=== PATIENT | male | born 1945 | race Caucasian/White ===

== ENCOUNTER 2023-03-18 07:20 | Outpatient (REF) | payer MEDICARE, SELFPAY ==
[2023-03-18] VITALS (14 sets, daily range): BP systolic 74–143; BP diastolic 55–66
[2023-03-18 07:53] LABS: % Basophils 0.6 % (0-2); % Eosinophils 5.2 % (0-6); % Immature Granulocytes 0.7 % (0-0.5); % Lymphocytes 25.9 % (20.5-51.1); % Monocytes 12.8 % (1.7-9.3); % Neutrophils 54.8 % (42.2-75.2); Absolute Eosinophils 0.4 10^3/uL (0-0.7); Absolute Immature Granulocytes 0.1 10^3/uL (0-0.05); Absolute Lymphocytes 1.8 10^3/uL (1.2-3.4); Absolute Monocytes 0.9 10^3/uL (0.1-0.6); Absolute Neutrophils 3.8 10^3/uL (1.4-6.5); Hematocrit 30.5 % (39.0-52.0); Hemoglobin 10.4 g/dL (13.0-18.0); Mean Corp Hgb Conc. 34.1 g/dL (33.0-37.0); Mean Corpuscular Hgb 33.9 pg (27.0-31.0); Mean Corpuscular Volume 99.3 fL (80.0-94.0); Mean Platelet Volume 10.2 fL (7.4-10.4); Nucleated Red Blood Cells % 0 % (-); Platelet Count 222 10^3/uL (130-400); Red Blood Cell Count 3.07 10^6/uL (4.70-6.10); Red Cell Dist. Width 13.9 % (11.5-14.5); White Blood Cell Count 6.9 10^3/uL (4.8-10.8)
[2023-03-18 07:59] LABS: INR 0.93; PT 12.7 Sec (11.4-14.6)
[2023-03-18 08:14] LABS: Blood Urea Nitrogen 41 mg/dl (9-20); Calcium 9.5 mg/dl (8.4-10.2); Carbon Dioxide 21 mmol/L (22-30); Chloride 110 mmol/L (98-107); Estimated Creatinine Clearance 22 ml/min; Glucose 101 mg/dl (70-99); Potassium 4.8 mmol/L (3.5-5.1); Sodium 138 mmol/L (135-145); eGFR 22.53
[2023-03-18 13:44] LABS: Hematocrit 28.4 % (39.0-52.0); Hemoglobin 9.9 g/dL (13.0-18.0)
== END 2023-03-18 15:27 | disposition home or self-care (01) ==
LOC: RADI 07:20
PROVIDERS: Physician Assistant; ATTENDING PHYSICIAN Internal Medicine; FAMILY PHYSICIAN Registered Nurse
DX: I12.9 Hypertensive chronic kidney disease with stage 1 through stage 4 chronic kidney disease, or unspecified chronic kidney disease (principal); N18.30 Chronic kidney disease, stage 3 unspecified
CPT/HCPCS: 36415; 50200; 76942; 80048; 85014; 85018; 85025; 85610; 99152; 99153

== ENCOUNTER → 2023-07-15 12:20 | Outpatient (REF) | payer MEDICARE, SELFPAY | LOC: RAD 12:20 | PROVIDERS: ATTENDING PHYSICIAN Student in an Organized Health Care Education/Training Program | DX: R42 Dizziness and giddiness (principal) | CPT/HCPCS: 70450 ==

== ENCOUNTER → 2023-08-04 08:22 | Outpatient (REF) | payer MEDICARE, SELFPAY | LOC: RAD 08:22 | PROVIDERS: ATTENDING PHYSICIAN Student in an Organized Health Care Education/Training Program | DX: R42 Dizziness and giddiness (principal); R25.2 Cramp and spasm | CPT/HCPCS: 93880; 93922; 93925 ==

== ENCOUNTER 2023-10-20 08:20 | Outpatient (RCR) | payer MEDICARE, SELFPAY ==
[2023-10-20 08:30] VITALS: BP 146/63
[2023-10-20] MEDS: SODIUM BICARBONATE 1150 MEQ IV (08:46)
== END 2023-10-21 08:22 | disposition home or self-care (01) ==
LOC: OID 08:20
PROVIDERS: ATTENDING PHYSICIAN Surgery Vascular Surgery; FAMILY PHYSICIAN Student in an Organized Health Care Education/Training Program
DX: I65.23 Occlusion and stenosis of bilateral carotid arteries (principal); Z92.89 Personal history of other medical treatment
CPT/HCPCS: 96365; 96366

== ENCOUNTER → 2023-10-20 08:35 | Outpatient (REF) | payer MEDICARE, SELFPAY | LOC: RAD 08:35 | PROVIDERS: ATTENDING PHYSICIAN Surgery Vascular Surgery; FAMILY PHYSICIAN Student in an Organized Health Care Education/Training Program | DX: I65.23 Occlusion and stenosis of bilateral carotid arteries (principal) | CPT/HCPCS: 70496; 70498; Q9967 ==

== ENCOUNTER → 2023-11-08 07:26 | Outpatient (REF) | payer MEDICARE, SELFPAY ==
[2023-11-08] MEDS: LEXISCAN 0.4 MG IV (09:25)
[2023-11-08] MEDS: FLUSH (NSS) 1 FLUSH IV (09:25)
== END ==
LOC: RCS 07:26
PROVIDERS: ATTENDING PHYSICIAN Nuclear Medicine Nuclear Cardiology; FAMILY PHYSICIAN Student in an Organized Health Care Education/Training Program
DX: Z01.818 Encounter for other preprocedural examination (principal); R07.9 Chest pain, unspecified; I10 Essential (primary) hypertension
CPT/HCPCS: 78452; 93017; A9500; J2785

== ENCOUNTER → 2023-11-11 08:21 | Outpatient (REF) | payer MEDICARE, SELFPAY | LOC: RCS 08:21 | PROVIDERS: ATTENDING PHYSICIAN Nuclear Medicine Nuclear Cardiology; FAMILY PHYSICIAN Student in an Organized Health Care Education/Training Program | DX: Z01.818 Encounter for other preprocedural examination (principal); R07.9 Chest pain, unspecified; I10 Essential (primary) hypertension | CPT/HCPCS: 93306 ==

== ENCOUNTER 2023-11-22 08:34 | Inpatient (IN) | payer MEDICARE, SELFPAY ==
[2023-11-16 09:35] VITALS: BMI 25.6
[2023-11-16 09:59] LABS: % Basophils 0.8 % (0-2); % Eosinophils 5.1 % (0-6); % Immature Granulocytes 1.3 % (0-0.5); % Lymphocytes 25.1 % (20.5-51.1); % Monocytes 16.5 % (1.7-9.3); % Neutrophils 51.2 % (42.2-75.2); Absolute Basophils 0.1 10^3/uL (0-0.2); Absolute Eosinophils 0.3 10^3/uL (0-0.7); Absolute Immature Granulocytes 0.1 10^3/uL (0-0.05); Absolute Lymphocytes 1.6 10^3/uL (1.2-3.4); Absolute Neutrophils 3.2 10^3/uL (1.4-6.5); Hematocrit 31.2 % (39.0-52.0); Hemoglobin 10.7 g/dL (13.0-18.0); Mean Corp Hgb Conc. 34.3 g/dL (33.0-37.0); Mean Corpuscular Hgb 34.2 pg (27.0-31.0); Mean Corpuscular Volume 99.7 fL (80.0-94.0); Mean Platelet Volume 10.4 fL (7.4-10.4); Nucleated Red Blood Cells % 0 % (-); Platelet Count 217 10^3/uL (130-400); Red Blood Cell Count 3.13 10^6/uL (4.70-6.10); Red Cell Dist. Width 13.5 % (11.5-14.5); White Blood Cell Count 6.3 10^3/uL (4.8-10.8)
[2023-11-16 10:13] LABS: APTT 25.9 Sec (23.4-35.0); INR 0.95; PT 12.5 Sec (11.4-14.6)
[2023-11-16 10:31] LABS: Blood Urea Nitrogen 50 mg/dl (9-20); Calcium 10.4 mg/dl (8.4-10.2); Carbon Dioxide 19 mmol/L (22-30); Chloride 107 mmol/L (98-107); Estimated Creatinine Clearance 19 ml/min; Glucose 106 mg/dl (70-99); Potassium 5.3 mmol/L (3.5-5.1); Sodium 142 mmol/L (135-145); eGFR 21.47
[2023-11-22] VITALS (14 sets, daily range): BP systolic 76–179; BP diastolic 47–81; BMI 25.6
[2023-11-22] MEDS: PERIDEX 0.12% ORAL RINSE 15 ML PO (08:53)
[2023-11-22] MEDS: BACTROBAN NASAL 1 GRAM NASAL (08:53)
[2023-11-22] MEDS: NSS 500 IV (08:54)
--- NOTE | 2023-11-22 09:26 | W.SUR.PREOP ---
Pre-Operative Surgical Note
-
I have examined this patient prior to the performance of the scheduled procedure.
The patient's condition is unchanged from the time of the current History and
Physical and the patient is able to undergo the scheduled procedure.
--- NOTE | 2023-11-22 12:10 | OR.RPT ---
Operative Report
Operative Report
PROCEDURE DATE: 11/22/2023
Preoperative diagnosis: Critical asymptomatic left carotid artery stenosis.
Postoperative diagnosis: Same
Procedure: Left carotid endarterectomy with bovine pericardial patch angioplasty and intraoperative EEG and SSEP monitoring.
Surgeon: Talha
Wardrobe Assistant: ALEXANDER Sharma, required for all aspects of procedure including assistance with traction/countertraction, following of suture line, assistance with closure.
Complications: None
Anesthesia: General
Indications for procedure:
Severe left carotid artery stenosis. Asymptomatic. Risk/benefits/alternatives all fully discussed. Complicating factor was patient's fused cervical spine and therefore difficulty with extension and rotation of the neck. However I felt it was
surgically approachable, and I felt TCAR would be more challenging actually. In addition I favored carotid endarterectomy over transfemoral stenting. Risk/benefits/alternatives also discussed. Patient understood all wish to proceed.
Description of procedure:
Patient was identified brought to the operating room placed on the table in supine position. After the induction of anesthesia we attempted to position in the standard fashion, however he had really no ability to extend or rotate the neck.
Therefore positioning was slightly challenging but I felt the procedure was still feasible. After the adequate administration of anesthesia and perioperative antibiotics he was prepped and draped in the standard surgical fashion. A standard
preoperative timeout was undertaken and everybody was in agreement the plan. A standard longitudinal incision was made in the left neck that was carried through the skin subcutaneous tissue. Using the electrocautery dissection was carried through
the platysma muscle layer and then alongside the anterior medial border of the sternocleidomastoid muscle. Then using a combination of sharp dissection with the Metzenbaum scissors and electrocautery I dissected along the anterior medial border of
the internal jugular vein. The common facial vein branch was ligated between silk ties and then divided. I then deepened my retraction. The common carotid artery was identified and carefully dissected away from the surrounding structures take
great care to avoid any injury to the structures. Again due to his diffuse cervical spine and limited positioning, the common carotid artery was somewhat deep and inferior in the field. A vessel loop was passed around it which was double looped,
but not yet tightened. Note the vagus nerve was protected from harm's way. I then continued my dissection up the common carotid artery to the bulb staying only on the anterior surface of the carotid artery. Then I carried the dissection up to the
internal carotid artery and then to the distal internal carotid artery. I identified where it was soft and carefully circumferentially dissected the internal carotid artery with minimal mobilization and passed a vessel loop around it. Note the
hypoglossal nerve was preserved from harm's way. The patient was given an appropriate dose of heparin 7000 units. Next I dissected the anterior surface of the external carotid artery and superior thyroid branches. These were then carefully
circumferentially dissected with minimal mobilization and vessel loops passed around these which were double looped but not yet tightened. After 3 minutes of heparin circulation time and confirmation of optimization of the blood pressure with my
anesthesiology colleagues, I clamped the distal internal carotid artery where it was soft. There was no immediate EEG or SSEP changes. After 1 minute of test clamp time there was no changes noted. Therefore at this point, the vessel loops on the
external carotid artery and superior thyroid branches were tightened and the common carotid artery was clamped where it was soft proximally. An arteriotomy was made on the common carotid artery with an 11 blade and extended using a Shea scissor.
I extended the arteriotomy onto the mid to distal internal carotid artery. There was bulky calcified plaque in the proximal internal carotid artery that was actually difficult to cut through with the Shea scissor, and created a severe stenosis. A
[place] was then used to endarterectomized the plaque. An endarterectomy plane was created, and the plaque was then endarterectomized. Distally I feathered the plaque out to a nice clean endpoint in the distal internal carotid artery. Next I
endarterectomized the intima back to normal intima in the common carotid artery, and the intima was cut flush there. I then grasped the plaque and everted plaque out of the origin of the external carotid artery. The plaque was then sent off for
specimen. The origin of the external carotid artery was carefully visualized and any fine debris were removed with fine forceps. Proximal and distal endpoints were then carefully inspected. Any fine debris was removed with fine forceps, and the
intima was noted to be nicely adherent proximally distally. Next any fine debris were removed throughout the endarterectomy bed with fine forceps. There was some coral reef like plaque remanence even after the endarterectomy that I had to
carefully remove. I then flushed heparinized saline several times. I was very satisfied. Then, I used a bovine pericardial patch to sew a patch angioplasty with a running 6-0 Prolene suture. Prior to completing and tying down my suture line, I
backbled sequentially each branch and reclamped each branch prior to unclamping the next branch. I then irrigated with heparinized saline. Then I completed and tied down my suture line. We then restored flow in the common carotid and external
carotid arteries. Finally, we released flow in the internal carotid artery. There was excellent pulsatile flow in all 3 vessels. There was an excellent Doppler signal in the internal carotid artery distal to the patch with a good normal low
resistance Doppler signal. There was a good Doppler signal in the external carotid artery as well. A few 6-0 Prolene [id number] sutures were placed along any bleeding points along the suture line. Protamine was given to reverse the heparin.
Hemostasis was completely achieved. We then irrigated and confirmed full hemostasis. We then closed in layers with 2-0 Vicryl layer to reapproximate the sternocleidomastoid muscle, followed by 3-0 Vicryl platysma muscle running layer, followed by
4-0 Monocryl subcuticular stitch. Dermabond was applied. The patient tolerated procedure well. He awoke moving all extremities to command with tongue in the midline.
[2023-11-22 12:45] LABS: Hematocrit 28.6 % (39.0-52.0); Hemoglobin 9.6 g/dL (13.0-18.0); Mean Corp Hgb Conc. 33.6 g/dL (33.0-37.0); Mean Corpuscular Hgb 32.7 pg (27.0-31.0); Mean Corpuscular Volume 97.3 fL (80.0-94.0); Mean Platelet Volume 9.8 fL (7.4-10.4); Platelet Count 188 10^3/uL (130-400); Red Blood Cell Count 2.94 10^6/uL (4.70-6.10); Red Cell Dist. Width 13.7 % (11.5-14.5); White Blood Cell Count 11.6 10^3/uL (4.8-10.8)
[2023-11-22 13:05] LABS: Blood Urea Nitrogen 47 mg/dl (9-20); Calcium 9.5 mg/dl (8.4-10.2); Carbon Dioxide 15 mmol/L (22-30); Chloride 109 mmol/L (98-107); Estimated Creatinine Clearance 20 ml/min; Glucose 135 mg/dl (70-99); Potassium 5.4 mmol/L (3.5-5.1); Sodium 141 mmol/L (135-145); eGFR 23.39
--- NOTE | 2023-11-22 13:45 | PTCARENOTE ---
Assumed care of patient. Rec'd pt from PACU. Pt rec'd A&Ox3...pleasant. C/o 06/01 back of neck/shoulder pain...will offer pain meds...see MAR. Bilateral hand tremor noted. PMH of ETOH...will monitor MSAS. Facial symmetry noted...able to smile
and stick out tongur with no issue. S1 S2 reg w/ NSR/1st degree AVB/RBBC on monitor. +PP. No edema. On R/A...sats 97%. Lungs clear except left base w/ crackles. Encourage to cough and deep breath. Dry NPC noted. Abdomen round..+BS. Voids
yellow in urinal. Skin WNL except left neck incision...well approximated and [employer] w/ glue. (R) radial misa...flushed and zeroed. 20P LFA capped. 18P LFA w/ IVF's infusing. VS documented. Call melvin within reach. Able to drink water and take po
meds w/o issue. Will continue to monitor closely.
[2023-11-22] MEDS: ROXICODONE 5 MG PO ×2 (14:05→22:01)
--- NOTE | 2023-11-22 14:05 | CON.INTV ---
Consultation
Consultation Request
Date/Time Consultation Requested: 11/22/23
Date/Time Consultation Performed: 11/22/23
Performing Provider: Matias
Reason for Consultation: Vasc Postop
Medical History
-
History of Present Illness:
Patient is a 78-year-old male with previous history of chronic alcohol abuse, back pain with ankylosing spondylitis, hypertension, hyperlipidemia, chronic kidney disease stage IV presenting for elective carotid vascular intervention. He has history
of left-sided carotid stenosis of greater than 80% with moderately to significant stenotic right side as well. Underwent intervention on 11/22/2023 and transferred postoperatively to ICU for further management.
Past Medical History
Past Medical History: Other (see list below)
Social History
Tobacco: Former Smoker
Alcohol: Daily
Drug: None
Family History
Family History: Reviewed & Not Pertinent
Allergies / Home Medications
Allergies
Allergy/AdvReac Type Severity Reaction Status Date / Time
No Known Allergies Allergy Verified 11/22/23 08:57
Home Medications
�Medication �Instructions �Recorded �Confirmed �Last Taken �Type
atorvastatin 20 mg tablet 20 mg PO DAILY 03/18/23 11/22/23 11/21/23 08:00 History
cyanocobalamin (vitamin B-12) 500 mcg PO DAILY 03/18/23 11/22/23 11/21/23 08:00 History
1,000 mcg tablet
losartan 25 mg tablet 50 mg PO BID 03/18/23 11/22/23 11/21/23 20:00 History
amlodipine 5 mg tablet 5 mg PO DAILY 10/20/23 11/22/23 11/21/23 08:00 History
acetaminophen 325 mg tablet 650 mg PO Q4H PRN pain 11/22/23 11/22/23 11/19/23 History
(Tylenol)
cholecalciferol (vitamin D3) 25 25 mcg PO DAILY 11/22/23 11/22/23 11/21/23 08:00 History
mcg (1,000 unit) capsule (Vitamin
D3)
Review of Systems
-
History Source: Patient
All other systems: Negative unless noted
Vitals / Labs / Diagnostic Testing
Vital Signs
Temp Pulse Resp BP Pulse Ox
98.4 F 86 15 131/59 95
11/22/23 13:30 11/22/23 13:30 11/22/23 13:30 11/22/23 13:15 11/22/23 13:30
Lab Data
11/22/23 12:37
11/22/23 12:37
Diagnostic Testing:
Physical Exam
-
HEENT: Normocephalic, Anicteric and Moist Mucous Membranes
Cardiovascular: S1/S2 and Regular Rhythm
Respiratory: Clear and Non-Labored Respirations
GI: Soft, Non Distended and Non Tender
Neurology: Awake, Alert, Oriented and No Motor Deficits
Skin: Warm, Dry and Good Color
General: Comfortable and Other (NAD)
Assessment
-
Patient is a 78-year-old male with previous history of chronic alcohol abuse, back pain with ankylosing spondylitis, hypertension, hyperlipidemia, chronic kidney disease stage IV presenting for elective carotid vascular intervention. He has history
of left-sided carotid stenosis of greater than 80% with moderately to significant stenotic right side as well. Underwent intervention on 11/22/2023 and transferred postoperatively to ICU for further management.
BL carotid disease s/p L CEA 11/22/23
Anemia, acute on chronic, likely postop
Hyperkalemia
Metabolic acidosis
DARON, creat 2.9 (BL 1.4-1.9)
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
History of EtOH abuse w/ acute WD and DTs 2021
Hypertension
Ambulatory dysfunction
History of cervical injury and fusion/repair 3 years ago
HLD
Former smoker
RBBB
Ankylosing spondylitis
Vit B12 def
CKD stage 4, GFR 15-29 ml/min
broken neck (1990) w/ cervical fx c5 s/p cervical surgery c7 fusion 2018
Cataract extraction(2006)
Tonsillectomy(1955)
Plan
Patient is s/p L CEA by vascular surgery service, POD #0
Continue observation following procedure
Follow neurovascular checks per protocol
ETOH history noted, h/o WD/DT noted in past
Monitor for symptoms
Follow BP monitoring and parameters as set by primary team
Cardiac history noted--HTN, RBBB
Monitor on telemetry
Pain control per protocol
RASS goal 0
No prior history of pulmonary disease, former smoker
CXR reviewed indicating no acute disease
No prior PFTs for review
Encouraged IS
Diet advancement per protocol
Aspiration precautions
GI prophylaxis if indicated for stress ulcer prevention in the critically ill
CKD history
DARON likely, follow BMP
Renal following as OP
Critical I/Os
Void trials
Replete electrolytes as needed
No signs/symptoms suspicious for infectious etiology at this time
Will observe off antibiotics for now
Follow temperatures/CBC
Hb and platelets postoperatively stable
Baseline Hb 10, now 9 which is likely postop
DVT prophylaxis recommended if not contraindicated based on procedural history -- heparin SQ and mechanical SCDs
Encouraged OOB/PT/OT/ambulation once cleared by surgical team
We will follow
Diagnostic Data
Chest X-Ray: 11/16/23- No acute disease of the chest. Slightly limited.
CT Scan:
Echo: 11/11/23- Normal left ventricular size, wall thickness and systolic function. LV ejection fraction is 61% by Fragoso's method of discs. Indexed LA volume is within normal range (15-34 mL/m2).
Trace mitral regurgitation. Mild tricuspid regurgitation. Mild pulmonic regurgitation. Normal pericardium without effusion. The IVC is of normal size and demonstrates normal respiratory variation.
PFT's:
Reports and relevant images were personally reviewed.
-----
Critical care time 51 mins -- this includes review of history, physical exam, medications, hemodynamic/ventilator parameters, laboratory data, imaging and discussion with house staff, pharmacy, respiratory therapy, truss designer, and nursing.
[2023-11-22] MEDS: NSS 1000 IV (14:08)
[2023-11-22] MEDS: NITROGLYCERIN PREMIX 250 IV (14:13)
--- NOTE | 2023-11-22 14:44 | PTCARENOTE ---
Attempted nitro gtt for a short period re: keep SBP between 100-165. Gtt started @ 5mcg...pt symptomatic after approximately 15min...lightheaded/dizzy/BP dropped to 60's. GTT stopped...will monitor closely.
--- NOTE | 2023-11-22 16:00 | PTCARENOTE ---
No major changes in pt's assessment. Remains on R/A...sats 95%. VS documented. Call melvin within reach. Will continue to monitor.
[2023-11-22] MEDS: CARDENE 200 IV (17:37)
--- NOTE | 2023-11-22 17:45 | PTCARENOTE ---
Nicardipine gtt initiated per MD orders. Gtt started @ 2.5mg/hr (lower than ordered dose) to see how pt reacts to IV medication. Will monitor BP's closely.
[2023-11-22] MEDS: HEPARIN 5000 UNITS SC (19:30)
--- NOTE | 2023-11-22 20:15 | PTCARENOTE ---
rec'd patient, assessment as documented. L CEA site well approximated, skin glue, minimal swelling/redness noted. oriented x3, see neuro check flowsheet. remains bedrest overnight. cardene gtt infusing to maintain SBP between 100-165. arterial line
leveled and zeroed. SR on monitor. on RA, denies SOB. urinal at bedside. denies pain at this time. call melvin within reach, care ongoing.
[2023-11-23] VITALS (8 sets, daily range): BP systolic 121–163; BP diastolic 57–69; BMI 25.2
[2023-11-23] MEDS: DILAUDID 0.5 MG IV (00:45)
[2023-11-23] MEDS: NSS 1000 IV (00:46)
[2023-11-23] MEDS: CARDENE 200 IV (00:48)
[2023-11-23] MEDS: ROXICODONE 5 MG PO (05:03)
[2023-11-23 05:05] LABS: Hematocrit 25.8 % (39.0-52.0); Hemoglobin 9.1 g/dL (13.0-18.0); Mean Corp Hgb Conc. 35.3 g/dL (33.0-37.0); Mean Corpuscular Hgb 33.8 pg (27.0-31.0); Mean Corpuscular Volume 95.9 fL (80.0-94.0); Platelet Count 188 10^3/uL (130-400); Red Blood Cell Count 2.69 10^6/uL (4.70-6.10); Red Cell Dist. Width 13.5 % (11.5-14.5); White Blood Cell Count 12.5 10^3/uL (4.8-10.8)
[2023-11-23 05:16] LABS: INR 1.01; PT 13.2 Sec (11.4-14.6)
[2023-11-23 05:17] LABS: APTT 26.7 Sec (23.4-35.0)
[2023-11-23 05:30] LABS: Blood Urea Nitrogen 50 mg/dl (9-20); Calcium 8.8 mg/dl (8.4-10.2); Carbon Dioxide 16 mmol/L (22-30); Chloride 108 mmol/L (98-107); Estimated Creatinine Clearance 21 ml/min; Glucose 134 mg/dl (70-99); Potassium 5.6 mmol/L (3.5-5.1); Sodium 138 mmol/L (135-145); eGFR 24.48
--- NOTE | 2023-11-23 06:15 | PTCARENOTE ---
AM labs sent. cardene gtt titrated off. pt using urinal at bedside overnight. PRN pain meds given, see MAR. neuro checks and L CEA site unchanged overnight. call melvin within reach.
[2023-11-23 06:18] LABS: Glucose - Point of Care 154 mg/dl (70-99)
--- NOTE | 2023-11-23 07:17 | W.PN.INTV ---
Addendum entered and electronically signed by Teri Salcedo DO 11/23/23 14:00:
Anemia due to hemodilution only
Original Note:
Today's Communication / Plan
Recommendations
Doing well postoperatively, stable on RA
Tolerating diet, sitting in chair
Continue further postop care per team
Discharge planning today
Assessment
-
Patient is a 78-year-old male with previous history of chronic alcohol abuse, back pain with ankylosing spondylitis, hypertension, hyperlipidemia, chronic kidney disease stage IV presenting for elective carotid vascular intervention. He has history
of left-sided carotid stenosis of greater than 80% with moderately to significant stenotic right side as well. Underwent intervention on 11/22/2023 and transferred postoperatively to ICU for further management.
BL carotid disease s/p L CEA 11/22/23
Anemia, acute on chronic, likely postop
Hyperkalemia
Metabolic acidosis
DARON, creat 2.9 (BL 1.4-1.9)
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
History of EtOH abuse w/ acute WD and DTs 2021
Hypertension
Ambulatory dysfunction
History of cervical injury and fusion/repair 3 years ago
HLD
Former smoker
RBBB
Ankylosing spondylitis
Vit B12 def
CKD stage 4, GFR 15-29 ml/min
broken neck (1990) w/ cervical fx c5 s/p cervical surgery c7 fusion 2018
Cataract extraction(2006)
Tonsillectomy(1955)
Plan
Patient is s/p L CEA by vascular surgery service, POD #1
Continue observation following procedure
Follow neurovascular checks per protocol
ETOH history noted, h/o WD/DT noted in past
Monitor for symptoms
Follow BP monitoring and parameters as set by primary team
Cardiac history noted--HTN, RBBB
Monitor on telemetry
Pain control per protocol
RASS goal 0
No prior history of pulmonary disease, former smoker
CXR reviewed indicating no acute disease
No prior PFTs for review
Encouraged IS
Diet advancement per protocol
Aspiration precautions
GI prophylaxis if indicated for stress ulcer prevention in the critically ill
CKD history
DARON likely, follow BMP
Renal following as OP
Critical I/Os
Void trials
Replete electrolytes as needed
No signs/symptoms suspicious for infectious etiology at this time
Will observe off antibiotics for now
Follow temperatures/CBC
Hb and platelets postoperatively stable
Baseline Hb 10, now 9 which is likely postop
DVT prophylaxis recommended if not contraindicated based on procedural history -- heparin SQ and mechanical SCDs
Encouraged OOB/PT/OT/ambulation once cleared by surgical team
Discharge planning per team
Diagnostic Data
Chest X-Ray: 11/16/23- No acute disease of the chest. Slightly limited.
CT Scan:
Echo: 11/11/23- Normal left ventricular size, wall thickness and systolic function. LV ejection fraction is 61% by Fragoso's method of discs. Indexed LA volume is within normal range (15-34 mL/m2).
Trace mitral regurgitation. Mild tricuspid regurgitation. Mild pulmonic regurgitation. Normal pericardium without effusion. The IVC is of normal size and demonstrates normal respiratory variation.
PFT's:
Reports and relevant images were personally reviewed.
-----
Critical care time 31 mins -- this includes review of history, physical exam, medications, hemodynamic/ventilator parameters, laboratory data, imaging and discussion with house staff, pharmacy, respiratory therapy, licensed direct entry midwife, and nursing.
Subjective Dataa
Subjective Data
Date of Service:
Date of Service: November 23, 2023
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
Subjective:
No new events, stable on RA
No new complaints
Objective Data
Data Reviewed
Vital Signs / I&O / Oxygen:
Vital Signs
Temp Pulse Resp BP Pulse Ox
97.9 F 75 19 136/63 94
11/23/23 03:29 11/23/23 06:00 11/23/23 06:00 11/23/23 06:00 11/23/23 06:18
Intake and Output
11/22/23 11/23/23 11/24/23
06:59 06:59 06:59
Intake Total 3283.3 / 3283.3
Output Total 1675 / 1675
Balance 1608.3 / 1608.3
SaO2 94
Physical Exam
General: Comfortable and Other (NAD)
HEENT: Normocephalic, Anicteric and Moist Mucous Membranes
Cardiovascular: S1-S2 and Regular Rhythm
Respiratory: Clear and Non-Labored Respirations
GI: Soft, Non Distended and Non Tender
Neurology: Awake, Alert, Oriented and No Motor Deficits
Skin: Warm, Dry and Good Color
Labs/Micro/Reports
Lab Data
11/23/23 04:57
Laboratory Results
11/23/23
04:57
PT 13.2
INR 1.01
APTT 26.7
[2023-11-23] MEDS: VITAMIN B-12 500 MCG PO (07:43)
[2023-11-23] MEDS: HEPARIN 5000 UNITS SC (07:43)
[2023-11-23] MEDS: VITAMIN D3 (cholecalciferol) 25 MCG PO (07:43)
[2023-11-23] MEDS: NORVASC 5 MG PO (07:43)
[2023-11-23] MEDS: LIPITOR 20 MG PO (07:43)
[2023-11-23] MEDS: LOKELMA 5 GRAM PO (08:10)
--- NOTE | 2023-11-23 09:03 | W.PN.VS ---
Addendum entered and electronically signed by VILLA Bar 11/23/23 14:43:
Spoke to patient's ground instructor advanced Dr. Lisa Etienne in regards to noted hyperkalemia and home medication of losartan, she recommends continuing his losartan on discharge with repeat CMP in outpatient setting with results forwarded to her. Provided
patient with script for blood work and placed follow up appointment with nephrology in discharge instructions.
Original Note:
Today's Communication / Plan
-
See below.
Assessment/Plan
-
Assessment: 78 year old male POD#1 Left CEA
Plan:
Dc arterial line
DC IV fluids
OOB to chair with progression to ambulation as tolerated
Will continue to hold home medication of losartan given hyperkalemia patient has known CKD, will reach out to ground instructor advanced Dr. Etienne for replacement recommendation
Hyperkalemia treated will get repeat BMP
Possible discharge later today pending
Subjective Data
-
Date of Service: November 23, 2023
Patient seen and examined, offers no complaints. Denies TOMLINSON, nausea, vomiting, fever, and chills. Tolerating PO intake. Reports eagerness for discharge to home.
Objective Data
-
Vital Signs
Temp Pulse Resp BP Pulse Ox
98 F 75 19 136/63 94
11/23/23 07:42 11/23/23 06:00 11/23/23 06:00 11/23/23 06:00 11/23/23 06:18
Intake and Output
11/22/23 11/23/23 11/24/23
06:59 06:59 06:59
Intake Total 3283.3 / 3363.3 80 / 80
Output Total 1675 / 2075 400 / 400
Balance 1608.3 / 1288.3 -320 / -320
Intake:
Oral fluids 1680 / 1680
IV fluids (Total) 1603.3 / 1683.3 80 / 80
CARDENE GTT 162.5 / 162.5 0 / 0
Nitro gtt 0.8 / 0.8
Nss 1,000 ml @ 80 mls/hr IV . 1440 / 1520 80 / 80
[id number] HALIMA Rx#:[id number]
Output:
Urine, Voided 1675 / 5 400 / 400
Lab Results
11/23/23 04:57
Calcium 8.8 mg/dl (8.4-10.2) 11/23/23 04:57
Magnesium 2.0 mg/dl (1.6-2.3) 11/23/23 04:57
Physical Exam
-
AAOx3, NAD
Face symmetrical, tongue midline, left neck surgical incision CDI, no evidence of hematoma
No tachycardia
No dyspnea
BL UE and LE with equal strength
--- NOTE | 2023-11-23 09:52 | PTCARENOTE ---
Assumed care of pt, assessment as documented. L CEA site well approximated, skin glue, minimal swelling/redness noted. oriented x3, see neuro check flowsheet. A-line removed, Pt assisted OOB to chair. SR on monitor with 1deg AV block, RBBB. on RA,
denies SOB. urinal at bedside. denies pain at this time. Tolerated dietcall melvin within reach, care ongoing.
--- NOTE | 2023-11-23 10:53 | CM ---
Reviewed chart, placed a call to patient's spouse to obtain information for assessment. Patient's stated that patient lives with her in a two story townhouse with a basement and 4 steps to enter. She described patient has independent with his
ADLs, personal care, dressing and bathing. He ambulates without a device. His shared that he walks 2 miles every day. 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 Patient has a walker that he does not use. Patient is
able to drive and can transport himself to his appointments and can do all of his own shopping. Patient's can drive while patient recovers and confirmed thta she can transport him home.
Patient has had VN in the past through .
He has been to [facility].
Patient has a prescription plan and uses, [facility] in [place] for all of his medications.
Patient 's PCP is, Diego Amezcua.
Patient's stated that she feels she will be able to take patient home when medically cleared and anticipates no needs.
Plan: Case management will continue to follow and assist with discharge planning. Home when table.
[2023-11-23 12:58] LABS: Potassium 4.7 mmol/L (3.5-5.1)
--- NOTE | 2023-11-23 13:35 | PN.CDI ---
CDI
- -
CDI:
Physician Documentation Request
Admit Date: 11/22/23 08:34
Dear Doctor Matias,
Please review the following and provide your response in the progress notes.
Clinical Indicators:
- 11/22 Reamer Hand 'Anemia, acute on chronic, likely postop'
- 11/21 Intraop report indicates EBL 20ml
- 2500ml IVF given
Laboratory Tests
11/16/23 11/22/23 11/23/23
09:44 12:37 04:57
Hgb 10.7 L 9.6 L 9.1 L
Please clarify the appropriate diagnosis that supports the above lab abnormalities and type of acute anemia:
Anemia, due to acute blood loss and hemodilution
Anemia due to hemodilution only
Other
Use of terms such as suspected, likely, concern for, or probable (associated with a specific diagnosis that is being evaluated, monitored, or treated as if it exists) are acceptable and can be coded in the inpatient setting, when documented at the
time of discharge.
Thank you,
Jayne Brice RN
CDI Specialist
Please use your independent medical judgment in providing your response.
--- NOTE | 2023-11-23 13:51 | W.DS.TRANS ---
DC Summary - Block Feeder
-
Discharge Instructions:
Discharge Diagnosis/Procedures Left carotid endarterectomy
Diet As tolerated
Activity No strenuous activity
Driving Restrictions Not until seen by your Dr
Bathing Restrictions OK to Shower
Blood Work Please get repeat Comprehensive Metabolic panel
on 11/26/2023 and have results sent to Dr.
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
Instructions:
Stand-Alone Forms: DC Instr - Vascular OR
Changes to Home Medications: Yes
Discharge Medications:
DC Medications w/original date entered in [facility]
atorvastatin 20 mg tablet 20 mg PO DAILY High Cholesterol 03/18/23
cyanocobalamin (vitamin B-12) 1,000 mcg tablet 500 mcg PO DAILY Supplement 03/18/23
losartan 25 mg tablet 50 mg PO BID Blood Pressure 03/18/23
amlodipine 5 mg tablet 5 mg PO DAILY Blood Pressure 10/20/23
acetaminophen 325 mg tablet (Tylenol) 650 mg PO Q4H PRN pain 11/22/23
cholecalciferol (vitamin D3) 25 mcg (1,000 unit) capsule (Vitamin D3) 25 mcg PO DAILY Supplement 11/22/23
aspirin 81 mg tablet,delayed release 81 mg PO DAILY #90 tabs 11/23/23
Home Medication Changes
Added ASA 81
Pending Results: No
--- NOTE | 2023-11-23 14:43 | W.DCSUMMARY ---
Discharge Summary
Discharge Data
Date of Admission: 11/22/23
Date of Discharge: 11/23/23
-
Pending Results: No
Hospital Course
Attending: Talha
Consultants: Pulmonary medicine
Allergies: NKDA
Procedure with date: Left carotid endarterectomy with bovine pericardial patch angioplasty and intraoperative EEG and SSEP monitoring. 11/22/[address] Gerry Palencia
History of present illness: The patient is an 78-year-old male with multiple medical conditions including: carotid stenosis, hyperlipidemia, hypertension, chronic kidney disease, and cervical fracture. Patient presented on 11/22/2023 for scheduled
procedure with Dr. Palencia. Patient presented at baseline health with no reports of recent illness or trauma.
Hospital Course: Briefly, the patient underwent scheduled carotid endarterectomy without complications, and recovered in PACU. Following recovery phase one and two patient was transferred to intensive care unit per protocol for continued hemodynamic
monitoring. Croze Cutter consulted to aid in medical management from a critical care perspective. POD #1 (11/23/2023) Patient neurologically intact, face symmetrical, and tolerating PO diet. Left neck surgical incision clean, dry, and intact with
suture line well approximated and soft. No evidence of hematoma. Arterial line and IV fluids discontinued. Patient able to ambulate without difficulty or incident. Hyperkalemia treated and repeat blood work demonstrated appropriate potassium level,
reviewed with patient's wrist hemmer Dr. Etienne, who wanted to continue Losartan and will follow up with outpatient lab work. Patient stable for discharge to home.
Prescriptions and follow up appointment are included in the DC summary scrum product owner note. All instructions were given to the patient in both written and verbal form and the patient expressed understanding.
Discharge Plan
-
Patient Disposition: Home (Routine Discharge)
Discharge Diagnosis/Procedures: Left carotid endarterectomy
Condition: Good
Diet: As tolerated
Activity: No strenuous activity
Driving Restrictions: Not until seen by your Dr
Bathing Restrictions: OK to Shower
Blood Work: Please get repeat Comprehensive Metabolic panel on 11/26/2023 and have results sent to Dr. Etienne your wrist hemmer
Activity Restrictions/Additional Instructions:
If you experience severe constant headache, weakness to an arm or leg, change in vision, trouble speaking or any stroke-like symptom, call 911 immediately
If you experience swelling, increased bruising, drainage from neck site, or fever, please call the office
Stand Alone Forms: DC Instr - Vascular OR
Referrals:
Diego Crow DO [Family Provider] -
Lisa Etienne MD [Active] - 01/04/24 9:45 am
Joseline Marmolejo CRNP [Specified Professional Personl] - 12/06/23 9:45 am
Prescriptions:
New
aspirin 81 mg tablet,delayed release (DR/EC)
81 mg PO DAILY Qty: 90 0RF
Continued
atorvastatin 20 mg Tablet
20 mg PO DAILY
losartan 25 mg Tablet
50 mg PO BID
cyanocobalamin (vitamin B-12) 1,000 mcg tablet
500 mcg PO DAILY
amlodipine 5 mg tablet
5 mg PO DAILY
cholecalciferol (vitamin D3) [Vitamin D3] 25 mcg (1,000 unit) Capsule
25 mcg PO DAILY
acetaminophen [Tylenol] 325 mg Tablet
650 mg PO Q4H PRN (Reason: pain)
Discharge Orders:
Discharge Patient (As Directed); Ordered 11/23/23
Ordered By: Madelaine Avila
Discharge Date and Time
Discharge Date/Time: 11/23/23 14:31
Print Language: TELUGU
== END 2023-11-23 14:31 | disposition home or self-care (01) | DRG 38 ==
LOC: ICU 08:34
PROVIDERS: Nurse Practitioner; Nurse Practitioner Primary Care; ADMITTING PHYSICIAN Surgery Vascular Surgery; CONSULT PHYSICIAN Internal Medicine; FAMILY PHYSICIAN Student in an Organized Health Care Education/Training Program
PROC: 03CJ0ZZ Extirpation of Matter from Left Common Carotid Artery, Open Approach (ICD-10-PCS; 2023-11-22)
DX: I65.22 Occlusion and stenosis of left carotid artery (principal); E87.20 Acidosis, unspecified; N18.4 Chronic kidney disease, stage 4 (severe); I12.9 Hypertensive chronic kidney disease with stage 1 through stage 4 chronic kidney disease, or unspecified chronic kidney disease
CPT/HCPCS: 88304; 88311; 35301; 36415; 71046; 80048; 82962; 83735; 84132; 85025; 85027; 85610; 85730; 86850; 86900; 86901; 95938; 95941; 95955

== ENCOUNTER → 2023-12-29 08:21 | Outpatient (REF) | payer MEDICARE, SELFPAY | LOC: DHVS 08:21 | PROVIDERS: ATTENDING PHYSICIAN Registered Nurse; FAMILY PHYSICIAN Student in an Organized Health Care Education/Training Program | DX: I65.23 Occlusion and stenosis of bilateral carotid arteries (principal) | CPT/HCPCS: 93880 ==

== ENCOUNTER 2024-04-25 15:30 | Inpatient (IN) | payer MEDICARE, SELFPAY ==
[2024-04-25] VITALS (8 sets, daily range): BP systolic 145–182; BP diastolic 76–159; BMI 26.3; BMI 24.6
[2024-04-25 09:27] LABS: % Basophils 0.6 % (0-2); % Eosinophils 1.1 % (0-6); % Immature Granulocytes 1.1 % (0-0.5); % Lymphocytes 12.3 % (20.5-51.1); % Monocytes 7.4 % (1.7-9.3); % Neutrophils 77.5 % (42.2-75.2); Absolute Basophils 0.1 10^3/uL (0-0.2); Absolute Eosinophils 0.1 10^3/uL (0-0.7); Absolute Immature Granulocytes 0.1 10^3/uL (0-0.05); Absolute Lymphocytes 1.4 10^3/uL (1.2-3.4); Absolute Monocytes 0.8 10^3/uL (0.1-0.6); Absolute Neutrophils 8.8 10^3/uL (1.4-6.5); Hematocrit 31.1 % (39.0-52.0); Hemoglobin 10.8 g/dL (13.0-18.0); Mean Corp Hgb Conc. 34.7 g/dL (33.0-37.0); Mean Corpuscular Hgb 34.1 pg (27.0-31.0); Mean Corpuscular Volume 98.1 fL (80.0-94.0); Mean Platelet Volume 10.3 fL (7.4-10.4); Nucleated Red Blood Cells % 0 % (-); Platelet Count 227 10^3/uL (130-400); Red Blood Cell Count 3.17 10^6/uL (4.70-6.10); Red Cell Dist. Width 13.7 % (11.5-14.5); White Blood Cell Count 11.3 10^3/uL (4.8-10.8)
[2024-04-25 09:40] LABS: Urine Albumin 3+ (Neg - Trace); Urine Bilirubin Negative (Negative); Urine Character Clear (Clear); Urine Color Yellow; Urine Glucose 1+ (Negative); Urine Ketone Negative (Negative); Urine Leukocyte Negative (Negative); Urine Nitrite Negative (Negative); Urine Occult Blood 4+ (Negative); Urine Urobilinogen Negative (Neg - 1+)
[2024-04-25 09:45] LABS: ALT (SGPT) 30 U/L (0-50); AST (SGOT) 29 U/L (17-59); Albumin 4.7 g/dl (3.5-5.0); Alkaline Phosphatase 66 U/L (38-126); Blood Urea Nitrogen 47 mg/dl (9-20); Calcium 10.1 mg/dl (8.4-10.2); Carbon Dioxide 14 mmol/L (22-30); Chloride 110 mmol/L (98-107); Glucose 133 mg/dl (70-99); Lipase 88 U/L (23-300); Potassium 5.5 mmol/L (3.5-5.1); Sodium 138 mmol/L (135-145); Total Bilirubin 0.7 mg/dl (0.2-1.3); Total Protein 7.9 g/dl (6.3-8.2)
[2024-04-25 10:23] LABS: Urine Mucus Few
[2024-04-25 10:24] LABS: Urine White Cell 0-2 /HPF (0-5)
--- NOTE | 2024-04-25 11:07 | ED.GENMED ---
History of Present Illness
General
Chief Complaint: Dizziness
Source: patient
Time Seen by Provider: 04/25/24 10:42
History of Present Illness
History of Present Illness:
79-year-old male presents to the emergency room complaining of abdominal cramping, dizziness, malaise. Symptoms began in the middle the night. Patient denies room spinning or vertigo but just feels more lightheaded. He has been gagging and dry
heaving but has not vomited actual material. He had 2 bowel movements in the past 24 hours 1 normal at 1 'loose' but not watery diarrhea. He and his have eaten the same things and she feels fine.
Past History
Past History
ED Past Medical History: GERD, HTN, Hypercholesterolemia and Other (Ankylosing spondylitis, erectile dysfunction, cervical fracture C5 1990)
ED Past Surgical History: Orthopedic (C7 cervical spine fusion), Tonsilectomy and Other (cataract extraction 2006)
Social History
Tobacco: Former smoker
Alcohol: Chronic alcoholic
Drug: None
Personal:
Living: with family
Family History
Family History: Other (reviewed and non-contributory)
Phy Exam
Physical Exam
Physical Exam:
General: Awake, Alert, Oriented X3. No acute distress. Appears stated age
Vitals: unremarkable
Head: Atraumatic
Eyes: Pupils equal, EOMI
Throat: Airway intact, no exudates, mildly dry
Neck: Trachea midline
Lungs: Clear and equal b/l
Heart: Regular rate, no murmurs
Abd: Soft, significant tenderness to palpation, no rebound, No pulsatile mass
Neuro: Nonfocal
Skin: Warm, dry, no rash
Extremities: pulses equal b/l, no edema
Course
Orders/Labs/Results
Orders:
Orders
04/25/24 09:01
Electrocardiogram (*1) Urgent
Reason for Study: Abdominal Pain
EKG- Treatment ONCE
04/25/24 09:10
CBC/With Diff [Complete Blood Count/With Diff] Urgent
Comprehensive Metabolic Panel Urgent
Lipase Urgent
Phosphorus Urgent
Comment: ADDON
Urinalysis Reflex To Culture Urgent
Date Specimen was Collected: 04/25/24
Time Specimen was Collected: 09:01
Urine Microscopic Reflex Cult Urgent
04/25/24 Lunch
NPO
Allow oral meds: Yes
Allow clear liquids: Sips of Clears
04/25/24 11:05
0.9% Sodium Chloride 500 ml [Nss] 500 ml IV BOLUS
Iohexol [Omnipaque] See Protocol PO NOW STA
04/25/24 11:07
CT Abd/pel (oral only)-DH Only Urgent
Comment:
Reason For Exam: abd pain
Ondansetron Injectable [Zofran] 4 mg IV NOW STA
04/25/24 14:50
UROLOGY CONSULT Routine
Consulting Provider: Cholo Perry
Was physician already notified: Yes
Comment: L hydro, L renal inflammation
04/25/24 15:15
HYDROmorphone [Dilaudid] 0.25 mg IV Q4HPRN PRN
Sterile Water For Inj [Sterile Water For Injection 1000 ml] 1,000 ml Sodium Bicarbonate 150 meq IV 125 mls/hr
04/25/24 15:16
Admit/Transfer Patient As Directed
Co-Sign Provider:
Level of Care: Inpatient admission
Assign to:: Medical/Surgical
Physician / Group: Hospitalist
Diagnosis: DARON
Reason for Hospitalization: Abdominal pain and nausea
Expected length of stay greater than two midnights?: Yes
ELOS- Estimated Length of Stay in days: 3
I certify the patient meets the requirements for IP care: Yes
04/25/24 15:17
PRN Pain Medication Management As Directed
May give lesser potent ordered pain med per pt: Yes
preference::
Protocol:: Medication orders for pain may be administered in a
manner that supports deferring to patient preference
when the pt is:
- Requesting an ordered lesser potent pain medication.
Least to most potent pain medications are defined
as: acetaminophen < NSAID < tramadol < opioids
(morphine, oxycodone, hydromorphone).
- Requesting a lesser dose of the same medication IF
ORDERED.
- Requesting a less intrusive route of administration
if both routes are prescribed by the provider (PO <
IV).
04/25/24 15:22
Code Status As Directed
Resuscitation Status: Do not resuscitate
Reached after discussion with pt or family/Healthcare POA: Yes
04/25/24 15:23
DNR Bracelet Application ONCE
04/25/24 17:50
Acetaminophen [Tylenol] 650 mg PO Q4HWA
Bisacodyl [Dulcolax] 10 mg RECTAL [id number] PRN
Docusate W/Senna [Senokot-S] 1 tablet PO BIDPRN PRN
Polyethylene Glycol Powder [Miralax] 17 grams PO DAILYPRN PRN
04/25/24 17:50
Activity As Directed
Activity Level: Out of Bed-Early Mobility
Pneumatic Compression Sleeves As Directed
Type: Knee high
Vital Signs As Directed
Frequency: Per unit guidelines
DX Deep Vein Thrombosis Video Routine
04/25/24 23:32
BMP [Basic Metabolic Panel] Routine
04/26/24 05:29
Complete Blood Count/With Diff IN AM
Comprehensive Metabolic Panel IN AM
Magnesium IN AM
04/26/24 08:00
Amlodipine [Norvasc] 5 mg PO DAILY
Aspirin Low Dose EC [Aspir Low (Enteric Coated)] 81 mg PO DAILY
Atorvastatin [Lipitor] 10 mg PO DAILY
Cholecalciferol (Vitamin D3) [VITAMIN D3 (cholecalciferol)] 25 mcg PO DAILY
Cyanocobalamin [Vitamin B-12] 500 mcg PO DAILY
Tamsulosin [Flomax] 0.4 mg PO DAILY
Abnormal Lab Results
04/25/24
09:10
WBC 11.3 H 10^3/uL
(4.8-10.8)
RBC 3.17 L 10^6/uL
(4.70-6.10)
Hgb 10.8 L g/dL
(13.0-18.0)
Hct 31.1 L %
(39.0-52.0)
MCV 98.1 H fL
(80.0-94.0)
MCH 34.1 H pg
(27.0-31.0)
Abs Immat Gran (auto) 0.1 H 10^3/uL
(0-0.05)
Absolute Neuts (auto) 8.8 H 10^3/uL
(1.4-6.5)
Absolute Monos (auto) 0.8 H 10^3/uL
(0.1-0.6)
Immature Gran % 1.1 H %
(0-0.5)
Neutrophils % 77.5 H %
(42.2-75.2)
Lymphocytes % 12.3 L %
(20.5-51.1)
Potassium 5.5 H mmol/L
(3.5-5.1)
Chloride 110 H mmol/L
(98-107)
Carbon Dioxide 14 L* mmol/L
(22-30)
BUN 47 H mg/dl
(9-20)
Creatinine 3.1 H mg/dL
(0.7-1.3)
Glucose 133 H mg/dl
(70-99)
Ur Occult Blood Reflex 4+ A
(Negative)
Urine RBC 3-6 A /HPF
(0-2)
Urine Glucose 1+ A
(Negative)
Urine Albumin (Reflex) 3+ A
(Neg - Trace)
04/25/24 09:10
04/25/24 09:10
Vital Signs
Initial and Last Documented VS:
Initial Vital Signs
Temp Pulse Resp BP Pulse Ox
97.6 F 86 16 145/76 100
04/25/24 08:58 04/25/24 08:58 04/25/24 08:58 04/25/24 08:58 04/25/24 08:58
Last Documented Vital Signs
Temp Pulse Resp BP Pulse Ox
98.4 F 79 18 149/69 96
04/26/24 07:15 04/26/24 08:07 04/26/24 07:15 04/26/24 08:07 04/26/24 08:02
MDM/Problems Addressed
Differential Diagnosis Includes:
Small bowel obstruction, kidney stone, diverticulitis
MDM/Problems Addressed:
Patient presents with abdominal pain. Workup here shows increasing creatinine. CT was obtained to exclude surgical emergencies or other significant intra-abdominal pathology. There is stranding about the left kidney with hydronephrosis but no
clear sign of obstruction. Patient's urine does not suggest an infection. Will hospitalize the patient to further explore the reasoning behind this left kidney inflammation.
*Radiology
Radiology exam reviewed: radiology read reviewed
*Pulse Oximetry
Patient hypoxic: no
*EKG
Interpreted by ED Provider?: Yes
Heart Rate: 77
Rate: normal
Rhythm: sinus
Interval: first degree heart block
QRS Pattern: other (Partial right bundle branch block)
Ischemia: non-specific ST changes
*Nuisance Wildlife Trapper Interpretation
Rate: normal
Interpretation: normal
Rhythm: sinus
*Critical Care Note
Total Time (30-74mins, 75-104mins- exclusive of procedures): Not Applicable
ED Attending Note
-
Portions of this chart may have been created with voice recognition software.� Occasional wrong word or��sound alike� substitutions may have occurred due to the inherent limitations of voice recognition software.
Discharge Plan
Departure
Patient Disposition: Admit
Date of Disposition: 04/25/24
Time of Disposition: 14:32
Admit to: Med/Surg
Presentation/result/management discussed w/ accepting MD/DO: Hospitalist
Condition: Fair
Discharge Problem:
Abdominal pain, Dizziness, Hydronephrosis
Interventions
Interventions:
*Risk Screen - Suicide Last Done: 04/25/24 08:58
*General Assessment Last Done: 04/25/24 12:37
*Neglect/Abuse Screening Last Done: 04/25/24 12:37
*ED- Fall Risk Assessment Last Done: 04/25/24 17:20
*ED COVID-19 Vaccine History Last Done: 04/25/24 17:55
*Nursing Disposition Last Done: 04/25/24 17:20
ED- Neurological Assessment Last Done: 04/25/24 12:37
ED Swallowing Screen Last Done: 04/25/24 13:58
Discharge Date and Time
Discharge Date/Time: 04/25/24 17:21
[2024-04-25] MEDS: OMNIPAQUE 50 ML PO (11:22)
[2024-04-25] MEDS: ZOFRAN 4 MG IV (11:22)
[2024-04-25] MEDS: NSS 500 IV (11:22)
--- NOTE | 2024-04-25 14:48 | W.PN.UPDATE ---
Update Note
Progress Note Update
I personally performed a history and physical exam of the patient and discussed management with the resident. I reviewed the resident's note and agree with the documented findings and plan of care HPI/CC.
79-year-old male presents with chief complaints of lower abdominal pain and nausea.
182/93, 105, 19, 97.6 F, 99% RA
Gen: NAD, AAOx3.
Eyes: EOMI, PERRLA, no scleral icterus.
Neck: supple.
CV: RRR, +S1/S2, no m/r/g.
Resp: CTAB, no rales, wheezes, or rhonchi.
Abd: +BS, soft, NT, ND
Skin: No rashes.
Neuro: CN 2-12 intact, non-focal.
Psych: Normal mood and affect.
Lab Results
04/25/24
09:10
WBC 11.3 H
RBC 3.17 L
Hgb 10.8 L
Hct 31.1 L
MCV 98.1 H
MCH 34.1 H
MCHC 34.7
RDW 13.7
Plt Count 227
MPV 10.3
Abs Immat Gran (auto) 0.1 H
Absolute Neuts (auto) 8.8 H
Absolute Lymphs (auto) 1.4
Absolute Monos (auto) 0.8 H
Absolute Eos (auto) 0.1
Absolute Basos (auto) 0.1
Immature Gran % 1.1 H
Neutrophils % 77.5 H
Lymphocytes % 12.3 L
Monocytes % 7.4
Eosinophils % 1.1
Basophils % 0.6
Nucleated RBC % 0
Sodium 138
Potassium 5.5 H
Chloride 110 H
Carbon Dioxide 14 L*
BUN 47 H
Creatinine 3.1 H
eGFR 19.70
Glucose 133 H
Calcium 10.1
Total Bilirubin 0.7
AST 29
ALT 30
Alkaline Phosphatase 66
Total Protein 7.9
Albumin 4.7
Lipase 88
Urine Color Yellow
Urine Clarity Clear
Urine pH 6.0
Ur Specific [place] 1.010
Urine Ketones Negative
Ur Occult Blood Reflex 4+ A
Urine Nitrite (Reflex) Negative
Urine Bilirubin Negative
Urine Urobilinogen Negative
Leukocyte Esterase Rfl Negative
Urine RBC 3-6 A
Urine WBC (Reflex) 0-2
Ur Squamous Epith Cells 3-5
Urine Mucus Few
Urine Glucose 1+ A
Urine Albumin (Reflex) 3+ A
CT A/P:
1. There is inflammation surrounding the left kidney and hydronephrosis but no cause of obstruction
2. There is a nonobstructing stone on the right
3. There is diverticulosis but no evidence of diverticulitis
4. There are prominent vascular calcifications
DARON on CKD4 with AG met acidosis and hyperkalemia:
-s/p 1L NS in ER
-U/A without evidence of infection, afebrile, minimal leukocytosis (likely reactive, also WBC higher 11/23/23)
-CT A/P above and notable for inflammation surrounding the left kidney and hydronephrosis but no cause of obstruction
-start IVFs with bicarb
-hold losartan
-c/s urology ([employer] message sent to Urology call role at [phone] on 04/25/24)
-c/s renal
Other problems:
Essential hypertension: Cont Norvasc, hold Losartan, IV Hydralazine PRN
Hyperlipidemia
B/L carotid disease s/p L CEA 11/22/23
History of EtOH abuse w/ acute WD and DTs 2021
Ambulatory dysfunction
History of cervical injury and fusion/repair ~3.5 years ago
Former smoker
RBBB
Ankylosing spondylitis
Vit B12 def
Broken neck (1990) w/ cervical fx C5 s/p cervical surgery C7 fusion 2018
Cataract extraction (2006)
Tonsillectomy (1955)
Left carotid endarterectomy with bovine pericardial patch angioplasty and intraoperative EEG and SSEP monitoring. 11/22/2023
--- NOTE | 2024-04-25 15:10 | HPS.HSE ---
Family Physician
-
Family Physician: Diego Crow, DO
Chief Complaint
-
Abdominal pain and nausea
History of Present Illness
79-year-old male presented to the ER with complaints of abdominal cramping, nausea and lightheadedness. He noted that symptoms began around 4am today and he believes they are progressively getting worse.
Patient denies room spinning or vertigo but just feels more lightheaded.
He has been dry heaving but has not vomited. He had 2 bowel movements in the past 24 hours 1 normal at 1 'loose' but not watery diarrhea. He denied any fevers however does notice some chills.
In the ER he was found to have mildly elevated WBC 11.3, hb 10.8. Potassium 5.5 Cr 3.1 and bicarb 14. Elevated blood pressure 182/93 and heart rate 105
CT abdomen pelvis in the ER:
1. There is inflammation surrounding the left kidney and hydronephrosis but no cause of obstruction
2. There is a nonobstructing stone on the right
3. There is diverticulosis but no evidence of diverticulitis
4. There are prominent vascular calcifications
Medical History
Past Medical History
Past Medical History: Reports HTN
Additional Past Medical History:
Hyperlipidemia
BL carotid disease s/p L CEA 11/22/23
History of EtOH abuse w/ acute WD and DTs 2021
Ambulatory dysfunction
History of cervical injury and fusion/repair 3 years ago
RBBB
Ankylosing spondylitis
Vit B12 def
Broken neck (1990) w/ cervical fx.
CkD4
Past Surgical History: Reports Other (cervical fx C5 s/p cervical surgery C7 fusion 2019 Cataract extraction (2006) Tonsillectomy (1955) Left carotid endarterectomy with bovine pericardial patch angioplasty and intraoperative EEG and SSEP
monitoring.)
Social History
Tobacco: Former Smoker
Alcohol: Daily (2-3 wine)
Drug: None
Personal:
Living: With Family
Family History
Family History: Not pertinent
Allergies / Home Medications
Allergies reflects when Allergies were last updated in [facility].
Home Medications with original date entered in [facility]
Allergy/Medication List:
Allergies
Allergy/AdvReac Type Severity Reaction Status Date / Time
No Known Allergies Allergy Verified 04/25/24 08:57
Home Medications
cyanocobalamin (vitamin B-12) 1,000 mcg tablet 500 mcg PO DAILY Supplement 03/18/23
amlodipine 5 mg tablet 5 mg PO DAILY Blood Pressure 10/20/23
cholecalciferol (vitamin D3) 25 mcg (1,000 unit) capsule (Vitamin D3) 25 mcg PO DAILY Supplement 11/22/23
aspirin 81 mg tablet,delayed release 81 mg PO DAILY #90 tabs 11/23/23
atorvastatin 10 mg tablet (Lipitor) 10 mg PO DAILY 04/25/24
losartan 50 mg tablet 50 mg PO BID 04/25/24
tamsulosin 0.4 mg capsule (Flomax) 0.4 mg PO DAILY 04/25/24
Review of Systems
-
History Source: Patient
A 12 point ROS was completed and negative except as noted: Yes
Constitutional: Reports Chills; Denies Fever or Night Sweats
EENT: Denies Sore Throat
Respiratory: Denies Cough, Hemoptysis or Trouble Breathing
Cardiac: Denies Chest Pain, Diaphoresis, Palpitations or Syncope
Abdomen/GI: Reports Abdominal Pain and Nausea; Denies Vomiting, Diarrhea, Constipated, Bloody Stools, Black Stools or Anorexia
: Denies Dysuria, Frequency or Flank Pain
Musculoskeletal: Denies Joint Pain or Edema
Neurological: Reports Other (Lightheadedness); Denies Headache, Weakness or Numbness
Psych: Reports Anxiety; Denies Depression
Physical Exam
Vital Signs
Vital Signs
Temp Pulse Resp BP Pulse Ox
97.6 F 105 19 182/93 99
04/25/24 08:58 04/25/24 14:15 04/25/24 14:15 04/25/24 13:00 04/25/24 14:15
Physical Exam
General: Well Developed, Well Nourished and Chills
HEENT: NormoCephalic and Anicteric
Respiratory: Clear and Non Labored Respirations
Cardiac: S1/S2, Regular Rhythm and Tachycardia
GI: Soft, Non Tender and Distended
Genito-urinary: Clear Urine
Musculoskeletal: No Cyanosis and No Edema
Skin: Warm and Dry
Neuro: Awake, Alert, Oriented and Nonfocal/grossly intact
Psych: Calm
Laboratory Results
-
04/25/24 09:10
04/25/24 09:10
Laboratory Results
Total Bilirubin 0.7 mg/dl (0.2-1.3) 04/25/24 09:10
AST 29 U/L (17-59) 04/25/24 09:10
ALT 30 U/L (0-50) 04/25/24 09:10
Alkaline Phosphatase 66 U/L (38-126) 04/25/24 09:10
Lipase 88 U/L (23-300) 04/25/24 09:10
Data Reviewed
-
CT Scan: Report Reviewed by me
Lab Data: Labs Reviewed by me, Discussed with Physician and Discussed with Patient
Impression/Plan
-
79-year-old male with previous history of back pain with ankylosing spondylitis, hypertension, hyperlipidemia, chronic kidney disease stage IV presented with complaints of nausea and abdominal pain.
Echo: 11/11/23- Normal left ventricular size, wall thickness and systolic function. LV ejection fraction is 61% by Fragoso's method of discs. Indexed LA volume is within normal range (15-34 mL/m2).
Trace mitral regurgitation. Mild tricuspid regurgitation. Mild pulmonic regurgitation. Normal pericardium without effusion. The IVC is of normal size and demonstrates normal respiratory variation.
#DARON on CKD4
# Anion gap metabolic acidosis
#Hyperkalemia:
-s/p 1L NS in ER
-Admit to MedSurg
-Renal diet
-start IVFs with sodium bicarb
-c/s renal and urology
-U/A without evidence of infection, afebrile, minimal leukocytosis (likely reactive, also WBC higher 11/23/23)
# EtOH use disorder
-History of acute WD and DTs 2021
-Msas protocol
# Hypertension
-Hold losartan due to current DARON
-Continue home amlodipine 5 mg daily
Other medical problems
Hyperlipidemia-continue Lipitor 10 mg daily
BL carotid disease s/p L CEA 11/22/23
Ambulatory dysfunction
History of cervical injury and fusion/repair 3 years ago
Former smoker
RBBB
Ankylosing spondylitis
Vit B12 def-continue B12 supplement
Left carotid endarterectomy with bovine pericardial patch angioplasty and intraoperative EEG and SSEP monitoring.
CODE STATUS: DNR
[2024-04-25] MEDS: DILAUDID 0.25 MG IV ×2 (15:52→19:46)
[2024-04-25] MEDS: SODIUM BICARBONATE 1150 MEQ IV (15:53)
--- NOTE | 2024-04-25 17:32 | W.CON.NEPH ---
Consultation
-
Date/Time Consultation Requested: April 25, 2024 at 4 PM
Date/Time Consultation Performed: April 25, 2024 at 5 PM
Requesting Provider: Dr. Phelan
Performing Provider: Dr. Roa
Reason for Consultation: Hyperkalemia and acute on chronic kidney disease
Medical History
-
Chief Complaint: Abdominal pain
History of Present Illness:
78-year-old male with multiple medical conditions including: carotid stenosis, hyperlipidemia, hypertension, chronic kidney disease, and cervical fracture. Status post carotid endarterectomy November 2023 presents with abdominal pain and dry
heaving from 4 AM acute onset.
Renal consult for acute on chronic kidney disease stage IV and hyperkalemia and acute metabolic acidosis.
Patient was seen on the medical floor is comfortable sitting in bed has no chest pain shortness of breath is nauseous and dry heaving seem to resolved for the moment. He has no difficulty urinating.
He did get 1 L of IV fluids normal saline in the ER
CAT scan.
The abdomen showed some left hydronephrosis with no obstruction ducting renal calculi. The right kidney shows a 5 mm renal calculi with no obstruction.
Past Medical History
carotid stenosis, hyperlipidemia, hypertension, chronic kidney disease, and cervical fracture. Status post carotid endarterectomy November 2023
Social History
Tobacco: Non-Smoker
Alcohol: Former
Family History
Family History: Not Pertinent
Allergies / Home Medications
Allergy/AdvReac Type Severity Reaction Status Date / Time
No Known Allergies Allergy Verified 04/25/24 08:57
�Medication �Instructions �Recorded �Confirmed �Type
cyanocobalamin (vitamin B-12) 500 mcg PO DAILY Supplement 03/18/23 04/25/24 History
1,000 mcg tablet
amlodipine 5 mg tablet 5 mg PO DAILY Blood Pressure 10/20/23 04/25/24 History
cholecalciferol (vitamin D3) 25 25 mcg PO DAILY Supplement 11/22/23 04/25/24 History
mcg (1,000 unit) capsule (Vitamin
D3)
aspirin 81 mg tablet,delayed 81 mg PO DAILY #90 tabs 11/23/23 04/25/24 Rx
release
atorvastatin 10 mg tablet (Lipitor) 10 mg PO DAILY 04/25/24 04/25/24 History
losartan 50 mg tablet 50 mg PO BID 04/25/24 04/25/24 History
tamsulosin 0.4 mg capsule (Flomax) 0.4 mg PO DAILY 04/25/24 04/25/24 History
Review of Systems
-
Abdominal pain with nausea no chest pain or shortness of breath
Physical Exam
Vital Signs
Vital Signs
Temp Pulse Resp BP Pulse Ox
97.6 F 106 27 179/85 97
04/25/24 08:58 04/25/24 16:45 04/25/24 16:45 04/25/24 16:00 04/25/24 16:45
Lab Results
WBC 11.3 10^3/uL (4.8-10.8) H 04/25/24 09:10
RBC 3.17 10^6/uL (4.70-6.10) L 04/25/24 09:10
Hgb 10.8 g/dL (13.0-18.0) L 04/25/24 09:10
Hct 31.1 % (39.0-52.0) L 04/25/24 09:10
Plt Count 227 10^3/uL (130-400) 04/25/24 09:10
Sodium 138 mmol/L (135-145) 04/25/24 09:10
Potassium 5.5 mmol/L (3.5-5.1) H 04/25/24 09:10
Chloride 110 mmol/L (98-107) H 04/25/24 09:10
Carbon Dioxide 14 mmol/L (22-30) L* 04/25/24 09:10
BUN 47 mg/dl (9-20) H 04/25/24 09:10
Creatinine 3.1 mg/dL (0.7-1.3) H 04/25/24 09:10
eGFR 19.70 04/25/24 09:10
Glucose 133 mg/dl (70-99) H 04/25/24 09:10
Calcium 10.1 mg/dl (8.4-10.2) 04/25/24 09:10
Albumin 4.7 g/dl (3.5-5.0) 04/25/24 09:10
Physical Exam
General no acute distress
HEENT no cephalic atraumatic extraocular muscle intact no scleral icterus no JVD neck supple
lungs clear to auscultation bilateral
heart regular S1-S2 positive
abdomen mild tenderness with mild distention
extremities no edema pulses present bilateral
Neurologically nonfocal alert and oriented x 3
Skin no lesions no abrasions no petechiae
Psych normal affect no bizarre behavior
Data Reviewed
-
Radiology: Image Personally Visualized and interpreted
Labs: Labs Reviewed by me and Discussed with Patient
Assessment/Plan
-
Patient presents with abdominal pain and dry heaving hyperkalemia.
Impression
Acute on chronic kidney disease stage IV.
Hyperkalemia.
Acute metabolic acidosis.
Abdominal pain.
Leukocytosis.
Left hydronephrosis
Hypertension
Plan.
Most recent creatinine from last discharge was 2.6 November 23, 2023./Admitting creatinine 3.1 potassium 5.5 and bicarbonate 14
Okay to continue bicarbonate drip.
With hydronephrosis and hyperkalemia though unilateral will place [place] catheter.
Urology has been consulted.
Hold losartan
No indication for Lokelma at this time.
No acute need for dialysis
--- NOTE | 2024-04-25 18:23 | PTCARENOTE ---
Pt seen by physician. Order for Ramírez placement. Pt urinated 200ml, bladder scan performed with 113 PVR, ramírez placement attempted. NO ramírez placed due to resistance. Pt then asked for the urinal and he put out another 200 ml.
[2024-04-25] MEDS: TYLENOL PO ×2 (18:26→23:35)
[2024-04-25 18:57] LABS: Phosphorus 4.2 mg/dl (2.5-4.5)
[2024-04-25] MEDS: THIAMINE INJECTION 200 MG IV (19:36)
--- NOTE | 2024-04-25 21:13 | CONS.URO ---
Consultation
-
Performing Provider: [place]
Reason for Consultation: left hydronephrosis
Medical History
History of Present Illness
79-year-old male presented to the ER with complaints of abdominal cramping, nausea and lightheadedness.
Past Medical History
Past Medical History: Other (Hyperlipidemia BL carotid disease s/p L CEA 11/22/23 History of EtOH abuse w/ acute WD and DTs 2021 Ambulatory dysfunction History of cervical injury and fusion/repair 3 years ago RBBB Ankylosing spondylitis Vit B12 def
Broken neck (1990) w/ cervical fx. CkD4)
Past Surgical History: Other (Broken neck (1990) w/ cervical fx C5 s/p cervical surgery C7 fusion 2019 Cataract extraction (2006) Tonsillectomy (1955) Left carotid endarterectomy with bovine pericardial patch)
Allergies/Home Medications
Allergies
Allergy/AdvReac Type Severity Reaction Status Date / Time
No Known Allergies Allergy Verified 04/25/24 08:57
Home Medications
�Medication �Instructions �Recorded �Confirmed �Type
cyanocobalamin (vitamin B-12) 500 mcg PO DAILY Supplement 03/18/23 04/25/24 History
1,000 mcg tablet
amlodipine 5 mg tablet 5 mg PO DAILY Blood Pressure 10/20/23 04/25/24 History
cholecalciferol (vitamin D3) 25 25 mcg PO DAILY Supplement 11/22/23 04/25/24 History
mcg (1,000 unit) capsule (Vitamin
D3)
aspirin 81 mg tablet,delayed 81 mg PO DAILY #90 tabs 11/23/23 04/25/24 Rx
release
atorvastatin 10 mg tablet (Lipitor) 10 mg PO DAILY 04/25/24 04/25/24 History
losartan 50 mg tablet 50 mg PO BID 04/25/24 04/25/24 History
tamsulosin 0.4 mg capsule (Flomax) 0.4 mg PO DAILY 04/25/24 04/25/24 History
Physical Exam
Vital Signs
Vital Signs
Temp Pulse Resp BP Pulse Ox
98.0 F 105 20 173/106 99
04/25/24 17:41 04/25/24 17:41 04/25/24 17:41 04/25/24 17:41 04/25/24 17:41
Lab / Testing Results
Laboratory Results
04/25/24 09:10
Physical Exam
adult male in bed brushing teeth
General: No Apparent Distress
Genito-urinary: No Costovertebral Tend
Psych: Calm
Assessment / Plan
-
retroperitoneal inflammation causing mild changes involving left ureter/kidney
few RBCs on UA
principal etiology of symptoms is NOT of urologic origin
no indication for urosurgical intervention
Data Reviewed
-
CT Scan: Image personally visualized and interpreted
Lab Data: Labs Reviewed
Old Records: Reviewed
[2024-04-26 00:03] LABS: Blood Urea Nitrogen 48 mg/dl (9-20); Calcium 9.3 mg/dl (8.4-10.2); Carbon Dioxide 21 mmol/L (22-30); Chloride 102 mmol/L (98-107); Estimated Creatinine Clearance 18 ml/min; Glucose 112 mg/dl (70-99); Potassium 4.7 mmol/L (3.5-5.1); Sodium 131 mmol/L (135-145); eGFR 18.96
[2024-04-26] MEDS: SODIUM BICARBONATE 1150 MEQ IV (01:53)
[2024-04-26] MEDS: TYLENOL PO ×3 (03:46→12:26)
[2024-04-26] MEDS: DILAUDID 0.25 MG IV ×3 (04:12→22:12)
[2024-04-26 06:24] LABS: % Basophils 0.6 % (0-2); % Eosinophils 7.7 % (0-6); % Immature Granulocytes 0.6 % (0-0.5); % Lymphocytes 13.7 % (20.5-51.1); % Monocytes 13.7 % (1.7-9.3); % Neutrophils 63.7 % (42.2-75.2); Absolute Basophils 0.1 10^3/uL (0-0.2); Absolute Eosinophils 0.8 10^3/uL (0-0.7); Absolute Immature Granulocytes 0.1 10^3/uL (0-0.05); Absolute Lymphocytes 1.4 10^3/uL (1.2-3.4); Absolute Monocytes 1.4 10^3/uL (0.1-0.6); Absolute Neutrophils 6.3 10^3/uL (1.4-6.5); Hematocrit 29.8 % (39.0-52.0); Hemoglobin 10.5 g/dL (13.0-18.0); Mean Corp Hgb Conc. 35.2 g/dL (33.0-37.0); Mean Corpuscular Hgb 34.9 pg (27.0-31.0); Mean Platelet Volume 10.2 fL (7.4-10.4); Nucleated Red Blood Cells % 0 % (-); Platelet Count 241 10^3/uL (130-400); Red Blood Cell Count 3.01 10^6/uL (4.70-6.10); Red Cell Dist. Width 13.5 % (11.5-14.5); White Blood Cell Count 9.9 10^3/uL (4.8-10.8)
[2024-04-26 06:53] LABS: ALT (SGPT) 24 U/L (0-50); AST (SGOT) 30 U/L (17-59); Albumin 4.1 g/dl (3.5-5.0); Alkaline Phosphatase 56 U/L (38-126); Blood Urea Nitrogen 51 mg/dl (9-20); Calcium 9.3 mg/dl (8.4-10.2); Carbon Dioxide 24 mmol/L (22-30); Chloride 98 mmol/L (98-107); Estimated Creatinine Clearance 18 ml/min; Glucose 100 mg/dl (70-99); Magnesium 2.2 mg/dl (1.6-2.3); Potassium 4.5 mmol/L (3.5-5.1); Sodium 135 mmol/L (135-145); Total Bilirubin 1.1 mg/dl (0.2-1.3); Total Protein 6.6 g/dl (6.3-8.2); eGFR 18.96
[2024-04-26 07:15] VITALS: BP 149/69
--- NOTE | 2024-04-26 07:18 | W.PN.HOSP.TC ---
Today's Communication/Plan
-
Continue current management
Assessment / Plan
Assessment / Plan
79-year-old male with previous history of back pain with ankylosing spondylitis, hypertension, hyperlipidemia, chronic kidney disease stage IV presented with complaints of nausea and abdominal pain.
Echo: 11/11/23- Normal left ventricular size, wall thickness and systolic function. LV ejection fraction is 61% by Fragoso's method of discs. Indexed LA volume is within normal range (15-34 mL/m2).
Trace mitral regurgitation. Mild tricuspid regurgitation. Mild pulmonic regurgitation. Normal pericardium without effusion. The IVC is of normal size and demonstrates normal respiratory variation.
#DARON on CKD4
# Anion gap metabolic acidosis-resolved
#Hyperkalemia-resolved
-s/p 1L NS in ER
-Renal diet
-IVFs with sodium bicarb
-Nephro and urology input appreciated; nephro recommended [place] due to hydronephrosis
-No indication for neurosurgical intervention per urology.
-U/A without evidence of infection; urine culture negative
-Serum creatinine remain elevated at 3.2
# EtOH use disorder
-History of acute WD and DTs 2021
-Msas protocol
# Hypertension
-Hold losartan due to current DARON
-Continue home amlodipine 5 mg daily
Other medical problems
Hyperlipidemia-continue Lipitor 10 mg daily
BL carotid disease s/p L CEA 11/22/23
Ambulatory dysfunction
History of cervical injury and fusion/repair 3 years ago
Former smoker
RBBB
Ankylosing spondylitis
Vit B12 def-continue B12 supplement
Left carotid endarterectomy with bovine pericardial patch angioplasty and intraoperative EEG and SSEP monitoring.
CODE STATUS: DNR
Anticipated Discharge: Within 24 hours
Subjective/Interval History
-
Date of Service: April 26, 2024
AFVSS. Offers no new complaints. Patient states he feels fine and would like to go home.
Objective Data
-
Labs:
Laboratory Results
04/25/24 04/26/24
23:32 05:29
WBC 9.9
Hgb 10.5 L
Hct 29.8 L
Plt Count 241
Sodium 131 L 135
Potassium 4.7 4.5
Chloride 102 98
Carbon Dioxide 21 L 24
BUN 48 H 51 H
Creatinine 3.2 H 3.2 H
Glucose 112 H 100 H
Calcium 9.3 9.3
Total Bilirubin 1.1
AST 30
ALT 24
Alkaline Phosphatase 56
Vital Signs:
Vital Signs
Temp Pulse Resp BP Pulse Ox
98.1 F 84 16 149/76 97
04/25/24 23:13 04/25/24 23:13 04/25/24 23:13 04/25/24 23:13 04/25/24 23:13
I&O
04/25/24 04/26/24 04/27/24
06:59 06:59 06:59
Intake Total 2460 / 2460
Output Total 1275 / 1275
Balance 1185 / 1185
Review of Systems
-
All other systems: Reviewed and negative (except stated)
Physical Exam
-
General: Well Developed, Well Nourished and No Apparent Distress
HEENT: Normocephalic and Atraumatic
Respiratory: Clear to Auscultation
Cardiac: Regular Rhythm and S1/S2
GI: Soft, Nontender and Nondistended
Musculoskeletal: No Clubbing and No Edema
Skin: Warm and Dry
Neuro: Awake, Alert and Oriented
Psych: Calm
Data Reviewed
-
Labs: Labs Reviewed by me, Discussed with Physician and Discussed with Patient
[2024-04-26] MEDS: VITAMIN B-12 500 MCG PO (08:05)
[2024-04-26] MEDS: VITAMIN D3 (cholecalciferol) 25 MCG PO (08:05)
[2024-04-26] MEDS: THIAMINE INJECTION 200 MG IV ×2 (08:06→20:40)
[2024-04-26] MEDS: FLOMAX 0.4 MG PO (08:06)
[2024-04-26] MEDS: ASPIR LOW (ENTERIC COATED) 81 MG PO (08:06)
[2024-04-26] MEDS: FOLVITE 1 MG PO (08:07)
[2024-04-26] MEDS: NORVASC 5 MG PO (08:07)
[2024-04-26] MEDS: LIPITOR 10 MG PO (08:07)
[2024-04-26] MEDS: FLUSH (NSS) 1 FLUSH IV (08:08)
--- NOTE | 2024-04-26 10:34 | W.PN.UPDATE ---
Update Note
Progress Note Update
I personally performed a history and physical exam of the patient and discussed management with the resident. I reviewed the resident's note and agree with the documented findings and plan of care HPI/CC.
No new complaints. Patient asking to leave the hospital.
Gen: NAD, AAOx3.
Eyes: EOMI, PERRLA, no scleral icterus.
Neck: supple.
CV: RRR, +S1/S2, no m/r/g.
Resp: CTAB, no rales, wheezes, or rhonchi.
Abd: +BS, soft, NT, ND
Skin: No rashes.
Neuro: CN 2-12 intact, non-focal.
Psych: Normal mood and affect.
CT A/P:
1. There is inflammation surrounding the left kidney and hydronephrosis but no cause of obstruction
2. There is a nonobstructing stone on the right
3. There is diverticulosis but no evidence of diverticulitis
4. There are prominent vascular calcifications
DARON on CKD4 with AG met acidosis and hyperkalemia:
-s/p 1L NS in ER
-U/A without evidence of infection, afebrile, minimal leukocytosis (likely reactive, also WBC higher 11/23/23)
-CT A/P above and notable for inflammation surrounding the left kidney and hydronephrosis but no cause of obstruction
-Metabolic acidosis and hyperkalemia resolved with IVFs with bicarb
-holding losartan
-Appreciate urology, no indication for neurosurgical intervention
-renal following
-ramírez placement attempted but failed
Other problems:
Essential hypertension: Cont Norvasc, holding Losartan, IV Hydralazine PRN
Hyperlipidemia
B/L carotid disease s/p L CEA 11/22/23
History of EtOH abuse w/ acute WD and DTs 2021
Ambulatory dysfunction
History of cervical injury and fusion/repair ~3.5 years ago
Former smoker
RBBB
Ankylosing spondylitis
Vit B12 def
Broken neck (1990) w/ cervical fx C5 s/p cervical surgery C7 fusion 2018
Cataract extraction (2006)
Tonsillectomy (1955)
Left carotid endarterectomy with bovine pericardial patch angioplasty and intraoperative EEG and SSEP monitoring. 11/22/2023
[2024-04-26] MEDS: SODIUM BICARBONATE IV (10:54)
[2024-04-26] MEDS: TYLENOL 650 MG PO ×3 (12:45→20:42)
--- NOTE | 2024-04-26 15:32 | PTCARENOTE ---
Pt AAO x3, MONACO, OOB in room/to BR with assist x1/walker, gregor well, sl unsteady w/OOB activity; denies weakness/dizziness. Pt occ c/o posterior neck pain; good effect with Tylenol PO. VSS. On room air- pulse ox 9%, no SOB noted. Abd soft, rounded,
gregor PO wel. Voids in urinal/R without difficulty. Resting in bed at present. Will continue to monitor.
[2024-04-26 15:34] VITALS: BP 131/70
--- NOTE | 2024-04-26 16:46 | CM ---
Alert awake oriented patient who lives with his IVETTE who lives in a 2 story home with 5 step to enter and 11 steps to bed and bathroom. He is independent in driving and in all activities of daily living.He was offered VN he declined need.
No VN hx / [facility] history
Pharmacy [facility]
PCP DR Crow
PLAN Home Declined VN
--- NOTE | 2024-04-26 17:31 | W.PN.NEPH.PH ---
Today's Communication / Plan
-
observe
Question need for Lasix renal scan to assess for functional obstruction of left kidney?
Assessment/Plan
-
Patient presents with abdominal pain and dry heaving hyperkalemia.
Impression
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
Hyperkalemia.
Acute metabolic acidosis.
Abdominal pain.
Leukocytosis.
Left hydronephrosis
Hypertension
Plan.
Most recent creatinine from last discharge was 2.6 November 23, 2023./Admitting creatinine 3.1 potassium 5.5 and bicarbonate 14
Creatinine now at 3.2 bicarb corrected to 24 nonoliguric
Catheter insertion failed last PM
Urology has been consulted re: left hydronephrosis but states there is no intervention to be done
I am unsure how to proceed from here in regards to the left hydronephrosis and inflammation, no cystoscopy, possible lasix renal scan to assess for functional obstrution?
Holding losartan in setting of DARON
No acute need for dialysis
-
-
Date of Service: April 26, 2024
CC / HPI / ROS
-
Chief Complaint:
Acute kidney injury
History of Present Illness:
Creatinine remains elevated to 3.2
Hemodynamically stable
Metabolic acidosis correct
Review of Systems:
Nonoliguric
No chest pain or shortness of
Labs
-
Labs:
WBC 9.9 10^3/uL (4.8-10.8) 04/26/24 05:29
RBC 3.01 10^6/uL (4.70-6.10) L 04/26/24 05:29
Hgb 10.5 g/dL (13.0-18.0) L 04/26/24 05:29
Hct 29.8 % (39.0-52.0) L 04/26/24 05:29
Plt Count 241 10^3/uL (130-400) 04/26/24 05:29
Sodium 135 mmol/L (135-145) 04/26/24 05:29
Potassium 4.5 mmol/L (3.5-5.1) 04/26/24 05:29
Chloride 98 mmol/L (98-107) 04/26/24 05:29
Carbon Dioxide 24 mmol/L (22-30) 04/26/24 05:29
BUN 51 mg/dl (9-20) H 04/26/24 05:
Creatinine 3.2 mg/dL (0.7-1.3) H 04/26/24 05:
eGFR 18.96 04/26/24 05:29
Glucose 100 mg/dl (70-99) H 04/26/24 05:
Calcium 9.3 mg/dl (8.4-10.2) 04/26/24 05:29
Phosphorus Cancelled 04/25/24 17:50
Albumin 4.1 g/dl (3.5-5.0) 04/26/24 05:29
Physical Exam
-
Vital Signs:
Vital Signs
Temp Pulse Resp BP Pulse Ox
98.4 F 84 18 131/70 99
04/26/24 15:34 04/26/24 15:34 04/26/24 15:34 04/26/24 15:34 04/26/24 15:34
Cardiovascular:: Regular rate and rhythm
Respiratory:: Bilateral: CTA
Lung Excursion:: Normal
Abdomen:: Nontender and Soft
Bowel Sounds:: Normal
Extremity Edema:: None: Bilateral:
[place] Catheter: No
[2024-04-26 23:33] VITALS: BP 161/84
[2024-04-27] MEDS: TYLENOL PO ×2 (00:15→04:42)
[2024-04-27] MEDS: DILAUDID 0.25 MG IV ×5 (03:29→22:08)
[2024-04-27 04:36] VITALS: BP 140/77
[2024-04-27 06:40] LABS: Hematocrit 30.2 % (39.0-52.0); Hemoglobin 10.3 g/dL (13.0-18.0); Mean Corp Hgb Conc. 34.1 g/dL (33.0-37.0); Mean Corpuscular Hgb 33.6 pg (27.0-31.0); Mean Corpuscular Volume 98.4 fL (80.0-94.0); Mean Platelet Volume 10.2 fL (7.4-10.4); Platelet Count 232 10^3/uL (130-400); Red Blood Cell Count 3.07 10^6/uL (4.70-6.10); Red Cell Dist. Width 13.3 % (11.5-14.5); White Blood Cell Count 10.2 10^3/uL (4.8-10.8)
--- NOTE | 2024-04-27 07:07 | W.PN.HOSP.TC ---
Today's Communication/Plan
-
Continue current management
Nephro following
Lasix renal scan?? OR cystoscopy? defer to nephro and urology
Assessment / Plan
Assessment / Plan
79-year-old male with previous history of back pain with ankylosing spondylitis, hypertension, hyperlipidemia, chronic kidney disease stage IV presented with complaints of nausea and abdominal pain.
Echo: 11/11/23- Normal left ventricular size, wall thickness and systolic function. LV ejection fraction is 61% by Fragoso's method of discs. Indexed LA volume is within normal range (15-34 mL/m2).
Trace mitral regurgitation. Mild tricuspid regurgitation. Mild pulmonic regurgitation. Normal pericardium without effusion. The IVC is of normal size and demonstrates normal respiratory variation.
#DARON on CKD4
# Anion gap metabolic acidosis-resolved
#Hyperkalemia-resolved
-s/p 1L NS in ER
-Renal diet
-s/p IVFs with sodium bicarbx2
-Nephro and urology input appreciated; nephro recommended [place] due to hydronephrosis: placement attempted but failed
-No indication for neurosurgical intervention per urology.
-U/A without evidence of infection; urine culture negative
-Serum creatinine remain elevated; went up to 4.0
-Nephro considering Lasix renal scan to assess for functional obstruction
-cystoscopy??
# EtOH use disorder
-History of acute WD and DTs 2021
-Msas protocol; abscess score 2
# Hypertension
-Hold losartan due to current DARON
-Continue home amlodipine 5 mg daily
Other medical problems
Hyperlipidemia-continue Lipitor 10 mg daily
BL carotid disease s/p L CEA 11/22/23
Ambulatory dysfunction
History of cervical injury and fusion/repair 3 years ago
Former smoker
RBBB
Ankylosing spondylitis
Vit B12 def-continue B12 supplement
Left carotid endarterectomy with bovine pericardial patch angioplasty and intraoperative EEG and SSEP monitoring.
CODE STATUS: DNR
Anticipated Discharge: 24 - 48 hours
Subjective/Interval History
-
Date of Service: April 27, 2024
AFVSS. Reports that he had 1 episode of severe abdominal pain last night which required IV Dilaudid. Denies any nausea vomiting. Had 1 routine bowel movement yesterday evening.
Objective Data
-
Labs:
Laboratory Results
04/27/24
06:04
WBC 10.2
Hgb 10.3 L
Hct 30.2 L
Plt Count 232
Sodium Pending
Potassium Pending
Chloride Pending
Carbon Dioxide Pending
BUN Pending
Creatinine Pending
Glucose Pending
Calcium Pending
Vital Signs:
Vital Signs
Temp Pulse Resp BP Pulse Ox
98.2 F 88 18 140/77 96
04/26/24 23:33 04/27/24 04:36 04/26/24 23:33 04/27/24 04:36 04/26/24 23:33
I&O
04/26/24 04/27/24 04/28/24
06:59 06:59 06:59
Intake Total 2460 / 2460 1470 / 1470
Output Total 1275 / 1275 1420 / 1420
Balance 1185 / 1185 50 / 50
Review of Systems
-
All other systems: Reviewed and negative (except stated)
Physical Exam
-
General: Well Developed, Well Nourished and Comfortable
HEENT: Normocephalic and Atraumatic
Respiratory: Clear to Auscultation
Cardiac: Regular Rhythm and S1/S2
GI: Soft, Nontender and Nondistended
Musculoskeletal: No Clubbing and No Edema
Skin: Warm and Dry
Neuro: Awake, Alert and Oriented
Psych: Calm
Data Reviewed
-
Labs: Labs Reviewed by me, Discussed with Physician and Discussed with Patient
[2024-04-27 07:08] LABS: Blood Urea Nitrogen 61 mg/dl (9-20); Calcium 9.1 mg/dl (8.4-10.2); Carbon Dioxide 26 mmol/L (22-30); Chloride 100 mmol/L (98-107); Estimated Creatinine Clearance 14 ml/min; Glucose 105 mg/dl (70-99); Potassium 4.6 mmol/L (3.5-5.1); Sodium 135 mmol/L (135-145); eGFR 14.51
[2024-04-27] MEDS: FLOMAX 0.4 MG PO (08:10)
[2024-04-27] MEDS: VITAMIN D3 (cholecalciferol) 25 MCG PO (08:10)
[2024-04-27] MEDS: ASPIR LOW (ENTERIC COATED) 81 MG PO (08:10)
[2024-04-27] MEDS: TYLENOL 650 MG PO ×4 (08:10→19:58)
[2024-04-27] MEDS: FOLVITE 1 MG PO (08:11)
[2024-04-27] MEDS: VITAMIN B-12 500 MCG PO (08:11)
[2024-04-27] MEDS: NORVASC 5 MG PO (08:11)
[2024-04-27] MEDS: FLUSH (NSS) 1 FLUSH IV ×3 (08:12→18:10)
[2024-04-27] MEDS: THIAMINE INJECTION 200 MG IV ×2 (08:12→19:58)
[2024-04-27] MEDS: LIPITOR 10 MG PO (08:12)
[2024-04-27 08:18] VITALS: BP 161/85
--- NOTE | 2024-04-27 09:18 | W.PN.URO.CBU ---
Today's Communication / Plan
-
Lasix Renal Scan -- to determine if obstruction exists
Patient: 'I don't want to have an operation unless it's definitely necessary.'
Assessment / Plan
-
persistent, recurrent abdominal symptoms
worsening renal function
normal urine output
I am skeptical that significant obstruction of the left kidney exists, but will keep an open mind to such.
Diagnosis
-
Date of Service: April 27, 2024
-
Patient Diagnosis:
abdominal pain and bloating
CKD
'mild to moderate hydronephrosis but no hydroureter.'
right renal stone: 5 mm, non-obstructing
Subjective
-
recurrent bout of abdominal pain: lower, 'both sides'
'and my belly is bloated'
no flank pain
no voiding sx
Objective
-
Vital Signs
Temp Pulse Resp BP Pulse Ox
98.3 F 87 18 161/85 97
04/27/24 08:18 04/27/24 08:18 04/27/24 08:18 04/27/24 08:18 04/27/24 08:18
Intake and Output
04/26/24 04/27/24 04/28/24
06:59 06:59 06:59
Intake Total 2460 / 2460 1470 / 1470
Output Total 1275 / 1275 1420 / 1420
Balance 1185 / 1185 50 / 50
Intake:
Oral fluids 960 / 960 720 / 720
IV fluids (Total) 1500 / 1500 750 / 750
Output:
Urine, Voided 1275 / 1275 1420 / 1420
Other:
Number of approximated MODERATE 2 2
amounts of urine
Laboratory Results
04/27/24 06:04
04/27/24 06:04
Physical Exam
-
General - well developed, well nourished, no acute distress
Abdomen - soft, non-tender, positive bowel sounds, no CVAT, + distention
--- NOTE | 2024-04-27 11:40 | W.PN.UPDATE ---
Update Note
Progress Note Update
I personally performed a history and physical exam of the patient and discussed management with the resident. I reviewed the resident's note and agree with the documented findings and plan of care HPI/CC.
No new complaints.
Gen: NAD, AAOx3.
Eyes: EOMI, PERRLA, no scleral icterus.
Neck: supple.
CV: remains RRR, +S1/S2, no m/r/g.
Resp: CTAB anteriorly, no rales, wheezes, or rhonchi.
Abd: remains +BS, soft, NT, ND
Skin: No rashes.
Neuro: CN 2-12 intact, non-focal.
Psych: Normal mood and affect.
CT A/P:
1. There is inflammation surrounding the left kidney and hydronephrosis but no cause of obstruction
2. There is a nonobstructing stone on the right
3. There is diverticulosis but no evidence of diverticulitis
4. There are prominent vascular calcifications
DARON on CKD4 with AG met acidosis and hyperkalemia:
-s/p 1L NS in ER
-U/A without evidence of infection, afebrile, minimal leukocytosis (likely reactive, also WBC higher 11/23/23)
-CT A/P above and notable for inflammation surrounding the left kidney and hydronephrosis but no cause of obstruction
-Metabolic acidosis and hyperkalemia resolved with IVFs with bicarb
-holding losartan
-renal/urology following
-ramírez placement attempted but failed
-Cr worsening, now 4.0
-for renal Lasix scan today. Discussed with Dr. Perry.
Other problems:
Essential hypertension: Cont Norvasc, holding Losartan, IV Hydralazine PRN
Hyperlipidemia
B/L carotid disease s/p L CEA 11/22/23
History of EtOH abuse w/ acute WD and DTs 2021
Ambulatory dysfunction
History of cervical injury and fusion/repair ~3.5 years ago
Former smoker
RBBB
Ankylosing spondylitis
Vit B12 def
Broken neck (1990) w/ cervical fx C5 s/p cervical surgery C7 fusion 2018
Cataract extraction (2006)
Tonsillectomy (1955)
Left carotid endarterectomy with bovine pericardial patch angioplasty and intraoperative EEG and SSEP monitoring, 11/22/2023
DNR/heparin
--- NOTE | 2024-04-27 16:03 | W.PN.UPDATE ---
Update Note
Progress Note Update
Lasix Renal Scan Performed but not yet interpreted by radiologist.
Will post for OR tomorrow- [cysto left ureteral stenting] if renal function continues to deteriorate and renal scan confirm obstruction
[2024-04-27 16:26] VITALS: BP 161/72
--- NOTE | 2024-04-27 16:35 | PTCARENOTE ---
Pt AAO x3, MONACO; OOB to BR with minimal assistance; sl unsteady w/OOB activity, denies weakness/dizziness. Pt has occ arm tremors. VSS. On room air- pulse ox 93%, no SOB noted. Abd large, rounded, pt c/o lower abd 'cramps/gassy'; gregor PO, appetite
fair. Voids small amts clear yellow urine. Pt aware of NPO past midnight 04/28 for possible OR. Resting quietly at present. Will continue to monitor.
--- NOTE | 2024-04-27 17:30 | W.PN.NEPH.PH ---
Today's Communication / Plan
-
Follow BMP
Possible urological intervention tomorrow
Assessment/Plan
-
Patient presents with abdominal pain and dry heaving hyperkalemia.
Impression
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
Hyperkalemia.
Acute metabolic acidosis.
Abdominal pain.
Leukocytosis.
Left hydronephrosis
Hypertension
Plan.
Most recent creatinine from last discharge was 2.6 November 23, 2023./Admitting creatinine 3.1 potassium 5.5 and bicarbonate 14
DARON worsening Creatinine now at 4 ,uop 670cc,
Lasix scan reviewed no evidence of right-sided obstructive uropathy
Catheter insertion failed
No acute need for dialysis
I am not sure where to go from here , this may be progression of underlying FSGS, he may require HD initiation this admission
If obstruction is not the etiology for his worsening renal failure I have no other obvious etiology
Cystoscopy with possible left ureteral stenting tomorrow
-
-
Date of Service: April 27, 2024
CC / HPI / ROS
-
Chief Complaint:
Acute kidney injury
History of Present Illness:
Creatinine remains elevated to 4
Hemodynamically stable
Metabolic acidosis corrected
Review of Systems:
Nonoliguric
No chest pain or shortness of breath
eating and drinking
still with abdominal pain
Labs
-
Labs:
WBC 10.2 10^3/uL (4.8-10.8) 04/27/24 06:04
RBC 3.07 10^6/uL (4.70-6.10) L 04/27/24 06:04
Hgb 10.3 g/dL (13.0-18.0) L 04/27/24 06:04
Hct 30.2 % (39.0-52.0) L 04/27/24 06:04
Plt Count 232 10^3/uL (130-400) 04/27/24 06:04
Sodium 135 mmol/L (135-145) 04/27/24 06:04
Potassium 4.6 mmol/L (3.5-5.1) 04/27/24 06:04
Chloride 100 mmol/L (98-107) 04/27/24 06:04
Carbon Dioxide 26 mmol/L (22-30) 04/27/24 06:04
BUN 61 mg/dl (9-20) H 04/27/24 06:04
Creatinine 4.0 mg/dL (0.7-1.3) H 04/27/24 06:04
eGFR 14.51 04/27/24 06:04
Glucose 105 mg/dl (70-99) H 04/27/24 06:04
Calcium 9.1 mg/dl (8.4-10.2) 04/27/24 06:04
Phosphorus Cancelled 04/25/24 17:50
Albumin 4.1 g/dl (3.5-5.0) 04/26/24 05:29
Physical Exam
-
Vital Signs:
Vital Signs
Temp Pulse Resp BP Pulse Ox
98.1 F 105 18 161/72 93
04/27/24 16:26 04/27/24 16:26 04/27/24 16:26 04/27/24 16:26 04/27/24 16:33
Cardiovascular:: Regular rate and rhythm
Respiratory:: Bilateral: CTA
Lung Excursion:: Normal
Abdomen:: Soft and Tender
Bowel Sounds:: Normal
Extremity Edema:: None: Bilateral:
[place] Catheter: No
[2024-04-27] MEDS: HEPARIN 5000 UNITS SC (19:59)
[2024-04-27 23:42] VITALS: BP 149/77
[2024-04-28] MEDS: TYLENOL PO ×5 (01:11→23:43)
[2024-04-28 06:25] LABS: Hemoglobin 10.2 g/dL (13.0-18.0); Mean Corpuscular Hgb 33.9 pg (27.0-31.0); Mean Corpuscular Volume 99.7 fL (80.0-94.0); Mean Platelet Volume 10.4 fL (7.4-10.4); Platelet Count 217 10^3/uL (130-400); Red Blood Cell Count 3.01 10^6/uL (4.70-6.10); Red Cell Dist. Width 13.4 % (11.5-14.5); White Blood Cell Count 8.6 10^3/uL (4.8-10.8)
[2024-04-28 07:02] LABS: Blood Urea Nitrogen 59 mg/dl (9-20); Calcium 9.7 mg/dl (8.4-10.2); Carbon Dioxide 23 mmol/L (22-30); Chloride 100 mmol/L (98-107); Estimated Creatinine Clearance 13 ml/min; Glucose 103 mg/dl (70-99); Potassium 4.3 mmol/L (3.5-5.1); Sodium 137 mmol/L (135-145); eGFR 13.68
--- NOTE | 2024-04-28 07:02 | W.PN.HOSP.TC ---
Today's Communication/Plan
-
Lasix scan with no evidence of right-sided obstructive uropathy; cath insertion failed. Creatinine continue to rise. Unclear etiology
Assessment / Plan
Assessment / Plan
79-year-old male with previous history of back pain with ankylosing spondylitis, hypertension, hyperlipidemia, chronic kidney disease stage IV presented with complaints of nausea and abdominal pain.
Echo: 11/11/23- Normal left ventricular size, wall thickness and systolic function. LV ejection fraction is 61% by Fragoso's method of discs. Indexed LA volume is within normal range (15-34 mL/m2).
Trace mitral regurgitation. Mild tricuspid regurgitation. Mild pulmonic regurgitation. Normal pericardium without effusion. The IVC is of normal size and demonstrates normal respiratory variation.
#DARON on CKD4
# Anion gap metabolic acidosis-resolved
#Hyperkalemia-resolved
-s/p 1L NS in ER
-Regular diet per urology
-s/p IVFs with sodium bicarbx2
-Nephro and urology input appreciated; nephro recommended [place] due to hydronephrosis: placement attempted but failed
-U/A without evidence of infection; urine culture negative
-Serum creatinine remain elevated; went up to 4.2
- Lasix renal scan to assess for functional obstruction; unremarkable
- Urology is not considering cystoscopy as there is no confirm obstruction per renal scan; no current indication for neurosurgical intervention per urology
# EtOH use disorder
-History of acute WD and DTs 2021
-Msas protocol; MSAS score 1
# Hypertension
-Hold losartan due to current DARON
-Continue home amlodipine 5 mg daily
Other medical problems
Hyperlipidemia-continue Lipitor 10 mg daily
BL carotid disease s/p L CEA 11/22/23
Ambulatory dysfunction
History of cervical injury and fusion/repair 3 years ago
Former smoker
RBBB
Ankylosing spondylitis
Vit B12 def-continue B12 supplement
Left carotid endarterectomy with bovine pericardial patch angioplasty and intraoperative EEG and SSEP monitoring.
CODE STATUS: DNR
Anticipated Discharge: Within 24 hours
Subjective/Interval History
-
Date of Service: April 28, 2024
Afebrile. Systolic blood pressure running around 150s. Offers no new complaints.
Objective Data
-
Labs:
Laboratory Results
04/28/24
05:26
WBC 8.6
Hgb 10.2 L
Hct 30.0 L
Plt Count 217
Sodium Pending
Potassium Pending
Chloride Pending
Carbon Dioxide Pending
BUN Pending
Creatinine Pending
Glucose Pending
Calcium Pending
Vital Signs:
Vital Signs
Temp Pulse Resp BP Pulse Ox
98.5 F 85 18 149/77 97
04/27/24 23:42 04/27/24 23:42 04/27/24 23:42 04/27/24 23:42 04/27/24 23:42
I&O
04/27/24 04/28/24 04/29/24
06:59 06:59 06:59
Intake Total 1470 / 1470 900 / 900
Output Total 1420 / 1420 1300 / 1300
Balance 50 / 50 -400 / -400
Review of Systems
-
All other systems: Reviewed and negative (except stated)
Physical Exam
-
General: Well Developed, Well Nourished and Comfortable
HEENT: Normocephalic and Atraumatic
Respiratory: Clear to Auscultation
Cardiac: Regular Rhythm and S1/S2
GI: Soft, Nontender and Nondistended
Musculoskeletal: No Clubbing and No Edema
Skin: Warm and Dry
Neuro: Awake, Alert and Oriented
Psych: Calm
Data Reviewed
-
Labs: Labs Reviewed by me, Discussed with Physician and Discussed with Patient
[2024-04-28 07:25] VITALS: BP 159/76
--- NOTE | 2024-04-28 08:01 | W.PN.URO.CBU ---
Today's Communication / Plan
-
no current indication for urosurgical interveention
search for etiology of GI-abdominal symptoms is advised
Assessment / Plan
-
persistent, recurrent abdominal symptoms
worsening renal function
normal urine output
renal scan did not corroborate obstruction
Diagnosis
-
Date of Service: April 28, 2024
-
Patient Diagnosis:
abdominal pain and bloating
CKD
'mild to moderate hydronephrosis but no hydroureter.'
right renal stone: 5 mm, non-obstructing
Objective
-
Vital Signs
Temp Pulse Resp BP Pulse Ox
98.5 F 85 18 149/77 97
04/27/24 23:42 04/27/24 23:42 04/27/24 23:42 04/27/24 23:42 04/27/24 23:42
Intake and Output
04/27/24 04/28/24 04/29/24
06:59 06:59 06:59
Intake Total 1470 / 1470 900 / 900
Output Total 1420 / 1420 1300 / 1300
Balance 50 / 50 -400 / -400
Intake:
Oral fluids 720 / 720 900 / 900
IV fluids (Total) 750 / 750
Output:
Urine, Voided 1420 / 1420 1300 / 1300
Other:
Number of approximated SMALL 2
amounts of urine
Number of approximated MODERATE 2
amounts of urine
Laboratory Results
04/28/24 05:26
04/28/24 05:26
Lasix Renal Scan: obstruction was not demonstrated
Physical Exam
-
General - well developed, well nourished, no acute distress
Chest - clear bilaterally
Abdomen - soft, non-tender, positive bowel sounds, no CVAT, no incisional pain or distention
Genitalia - normal
Rectal - normal
Skin - warm & dry with no rash
Neuro - AOx3, no motor deficits
Extremities - no clubbing, no cyanosis, no edema
Incision - clean, dry
Dressing - clean, dry, intact
[2024-04-28] MEDS: TYLENOL 650 MG PO ×2 (09:20→20:03)
[2024-04-28] MEDS: ASPIR LOW (ENTERIC COATED) 81 MG PO (09:20)
[2024-04-28] MEDS: VITAMIN B-12 500 MCG PO (09:20)
[2024-04-28] MEDS: NORVASC 5 MG PO (09:21)
[2024-04-28] MEDS: THIAMINE INJECTION 200 MG IV (09:21)
[2024-04-28] MEDS: FLOMAX 0.4 MG PO (09:21)
[2024-04-28] MEDS: FOLVITE 1 MG PO (09:21)
[2024-04-28] MEDS: VITAMIN D3 (cholecalciferol) 25 MCG PO (09:21)
[2024-04-28] MEDS: HEPARIN 5000 UNITS SC (09:21)
[2024-04-28] MEDS: LIPITOR 10 MG PO (09:21)
--- NOTE | 2024-04-28 11:49 | W.PN.UPDATE ---
Update Note
Progress Note Update
I personally performed a history and physical exam of the patient and discussed management with the resident. I reviewed the resident's note and agree with the documented findings and plan of care HPI/CC.
Reports lower abdominal discomfort after eating this AM that he attributes to feeling hungry.
Gen: NAD, AAOx3.
Eyes: EOMI, PERRLA, no scleral icterus.
Neck: supple.
CV: continues to remain RRR, +S1/S2, no m/r/g.
Resp: remains CTAB anteriorly, no rales, wheezes, or rhonchi.
Abd: continues to remain +BS, soft, NT, ND
Skin: No rashes.
Neuro: CN 2-12 intact, non-focal.
Psych: Normal mood and affect.
CT A/P:
1. There is inflammation surrounding the left kidney and hydronephrosis but no cause of obstruction
2. There is a nonobstructing stone on the right
3. There is diverticulosis but no evidence of diverticulitis
4. There are prominent vascular calcifications
DARON on CKD4 with AG met acidosis and hyperkalemia:
-s/p 1L NS in ER
-U/A without evidence of infection, afebrile, minimal leukocytosis (likely reactive, also WBC higher 11/23/23)
-CT A/P above and notable for inflammation surrounding the left kidney and hydronephrosis but no cause of obstruction
-Metabolic acidosis and hyperkalemia resolved with IVFs with bicarb
-holding losartan
-renal/urology following
-ramírez placement attempted but failed
-Cr worsening, now 4.2
-renal scan above, no upper/proximal urinary obstruction. No indication for surgical intervention at this time.
-will discuss further management with Dr. Etienne
Other problems:
Essential hypertension: Cont Norvasc, holding Losartan, IV Hydralazine PRN
Hyperlipidemia
B/L carotid disease s/p L CEA 11/22/23
History of EtOH abuse w/ acute WD and DTs 2021
Ambulatory dysfunction
History of cervical injury and fusion/repair ~3.5 years ago
Former smoker
RBBB
Ankylosing spondylitis
Vit B12 def
Broken neck (1990) w/ cervical fx C5 s/p cervical surgery C7 fusion 2018
Cataract extraction (2006)
Tonsillectomy (1955)
Left carotid endarterectomy with bovine pericardial patch angioplasty and intraoperative EEG and SSEP monitoring, 11/22/2023
DNR/heparin
[2024-04-28 15:13] VITALS: BP 133/70
[2024-04-28 15:30] LABS: Urine Sodium 67 mmol/L (30-90)
[2024-04-28] MEDS: MIRALAX 17 GRAMS PO (16:03)
--- NOTE | 2024-04-28 16:04 | CM ---
Pt said Gina will drive hem home at id.
Offered VN he declined .
PLAN Home no needs
--- NOTE | 2024-04-28 17:42 | W.PN.NEPH.PH ---
Today's Communication / Plan
-
see plan
Assessment/Plan
-
Patient presents with abdominal pain and dry heaving hyperkalemia.
Impression
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
Hyperkalemia.
Acute metabolic acidosis.
Abdominal pain.
Leukocytosis.
Left hydronephrosis
Hypertension
Daily ETOH intake
Plan.
Most recent creatinine from last discharge was 2.6 November 23, 2023./Admitting creatinine 3.1 potassium 5.5 and bicarbonate 14
DARON worsening Creatinine now at 4.2 ,uop 1.6lit
Lasix scan reviewed no evidence of right-sided obstructive uropathy
Catheter insertion failed , no plan of gu interventions
No acute need for dialysis, no biopsy indicated
avoid nephrotoxins, hold ARB
I am not sure where to go from here, this may be progression of underlying FSGS, he may require HD initiation
pt wants to go home, he is not ready yet
would want to see stabilization of cr first
Monitor for DT-chr daily ETOH intake
-
-
Date of Service: April 28, 2024
CC / HPI / ROS
-
Chief Complaint:
Acute kidney injury
History of Present Illness:
Creatinine remains elevated to 4.2
Hemodynamically stable
Metabolic acidosis corrected
Review of Systems:
Nonoliguric
No chest pain or shortness of breath
eating and drinking well
no abdominal pain
Labs
-
Labs:
WBC 8.6 10^3/uL (4.8-10.8) 04/28/24 05:26
RBC 3.01 10^6/uL (4.70-6.10) L 04/28/24 05:26
Hgb 10.2 g/dL (13.0-18.0) L 04/28/24 05:26
Hct 30.0 % (39.0-52.0) L 04/28/24 05:26
Plt Count 217 10^3/uL (130-400) 04/28/24 05:26
Sodium 137 mmol/L (135-145) 04/28/24 05:26
Potassium 4.3 mmol/L (3.5-5.1) 04/28/24 05:26
Chloride 100 mmol/L (98-107) 04/28/24 05:26
Carbon Dioxide 23 mmol/L (22-30) 04/28/24 05:26
BUN 59 mg/dl (9-20) H 04/28/24 05:26
Creatinine 4.2 mg/dL (0.7-1.3) H* 04/28/24 05:26
eGFR 13.68 04/28/24 05:26
Glucose 103 mg/dl (70-99) H 04/28/24 05:26
Calcium 9.7 mg/dl (8.4-10.2) 04/28/24 05:26
Phosphorus Cancelled 04/25/24 17:50
Albumin 4.1 g/dl (3.5-5.0) 04/26/24 05:29
Physical Exam
-
Vital Signs:
Vital Signs
Temp Pulse Resp BP Pulse Ox
98 F 84 16 133/70 99
04/28/24 15:13 04/28/24 15:13 04/28/24 15:13 04/28/24 15:13 04/28/24 15:13
Cardiovascular:: Regular rate and rhythm
Respiratory:: Bilateral: CTA
Lung Excursion:: Normal
Abdomen:: Nontender and Soft
Extremity Edema:: None: Bilateral:
[place] Catheter: No
[2024-04-28] MEDS: HEPARIN SC (20:01)
[2024-04-28] MEDS: VITAMIN B1 100 MG PO (20:03)
[2024-04-28 23:24] VITALS: BP 138/81
[2024-04-29] MEDS: TYLENOL PO ×2 (03:46→12:43)
[2024-04-29 06:22] LABS: Hematocrit 30.3 % (39.0-52.0); Hemoglobin 10.3 g/dL (13.0-18.0); Mean Corpuscular Hgb 34.1 pg (27.0-31.0); Mean Corpuscular Volume 100.3 fL (80.0-94.0); Mean Platelet Volume 10.7 fL (7.4-10.4); Platelet Count 228 10^3/uL (130-400); Red Blood Cell Count 3.02 10^6/uL (4.70-6.10); Red Cell Dist. Width 13.4 % (11.5-14.5)
[2024-04-29 06:55] LABS: Blood Urea Nitrogen 57 mg/dl (9-20); Calcium 9.7 mg/dl (8.4-10.2); Carbon Dioxide 26 mmol/L (22-30); Chloride 102 mmol/L (98-107); Estimated Creatinine Clearance 13 ml/min; Glucose 105 mg/dl (70-99); Potassium 4.2 mmol/L (3.5-5.1); Sodium 137 mmol/L (135-145)
--- NOTE | 2024-04-29 07:17 | W.PN.HOSP.TC ---
Addendum entered and electronically signed by Mario Claudio MD 04/29/24 15:52:
I saw and evaluated the patient. I reviewed the resident�s note and agree with findings and plan as documented in the resident�s note except for changes in my documentation
79-year-old male present to the hospital with abdominal pain and nausea and lightheadedness. In the ER he was found to have a creatinine of 3.1. Pressure was also elevated.
CT abdomen and pelvis-inflammation surrounding the left kidney and hydronephrosis without any cause of obstruction. No obstructing stone on the right. Diverticulosis without evidence of diverticulitis. Prominent vascular calcifications.
Renal scan-slightly asymmetric renal function right greater than left. No evidence of right-sided obstructive uropathy. Flattened left renogram curve particularly following Lasix administration. Unfortunately evaluation of the left sided
obstructive uropathy markedly limited.
CVS: S1-S2 normal
Chest: CTA B/L
Abdomen: Soft, NT
Extremities: No edema, normal pulses
# DARON on CKD stage IV with metabolic acidosis and hyperkalemia
Urinalysis without any evidence of infection
No obstruction noted on CT
Metabolic acidosis and hyperkalemia resolved with IV fluids with bicarb
Continue to hold losartan
[place] placement attempted but failed
Creatinine trending up
Renal biopsy FSGS
No urology procedures planned
# Hypertension-continue Norvasc. Hold losartan
# Hyperlipidemia-continue atorvastatin
# Bilateral carotid disease status post Left carotid endarterectomy with bovine pericardial patch angioplasty - 11/22/2023
# Cervical spine fracture of C5 status post surgery , C7 fusion 2018
# B12 deficiency-continue B12 replacement
# Ankylosing spondylitis
# RBBB
# Prostatic hypertrophy-continue Flomax
# Alcohol abuse-uses 2 to 3 glasses of wine every day ,continue thiamine. Watch for any withdrawal symptoms
# DVT prophylaxis-subcutaneous heparin
# DNR status
Discussed with nursing
Discussed with patient's on the phone. She is aware about complications of renal failure symptoms discussed with her. She also feels that the patient should be home now and not to the hospital as he would do better at home and can get blood
work.
Patient was advised also regarding the symptoms and signs of renal failure. He expresses understanding. He is also aware that he might need dialysis soon.
He is also aware not to drink alcohol
He states that his ankylosing spondylitis pain is really bad and he has to sleep in his own bed.
Discussed with nephrology
Prescription for blood work given to the patient
More than 30 minutes spent in discharge including
Final examination of the patient
Summarizing hospital stay
Instructions for continuing care to all relevant caregivers
Preparation of discharge records, prescriptions, and referral forms
Total time spent (in minutes): 39 min
Original Note:
Today's Communication/Plan
-
Continue to hold ARB
Serum creatinine creeping up; defer plan to nephro
Assessment / Plan
Assessment / Plan
79-year-old male with previous history of back pain with ankylosing spondylitis, hypertension, hyperlipidemia, chronic kidney disease stage IV presented with complaints of nausea and abdominal pain.
Echo: 11/11/23- Normal left ventricular size, wall thickness and systolic function. LV ejection fraction is 61% by Fragoso's method of discs. Indexed LA volume is within normal range (15-34 mL/m2).
Trace mitral regurgitation. Mild tricuspid regurgitation. Mild pulmonic regurgitation. Normal pericardium without effusion. The IVC is of normal size and demonstrates normal respiratory variation.
#DARON on CKD4
# Anion gap metabolic acidosis-resolved
#Hyperkalemia-resolved
-s/p 1L NS in ER
-Regular diet per urology
-s/p IVFs with sodium bicarbx2
-Nephro and urology input appreciated; nephro recommended [place] due to hydronephrosis: placement attempted but failed
-U/A without evidence of infection; urine culture negative
- Serum creatinine remain elevated; went up to 4.3
- Lasix renal scan to assess for functional obstruction; unremarkable
- Urology is not considering cystoscopy as there is no confirm obstruction per renal scan; no current indication for neurosurgical intervention per urology
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
# EtOH use disorder
-History of acute WD and DTs 2021
-Msas protocol; MSAS score 1
# Hypertension
-Hold losartan due to current DARON
-Continue home amlodipine 5 mg daily
Other medical problems
Hyperlipidemia-continue Lipitor 10 mg daily
BL carotid disease s/p L CEA 11/22/23
Ambulatory dysfunction
History of cervical injury and fusion/repair 3 years ago
Former smoker
RBBB
Ankylosing spondylitis
Vit B12 def-continue B12 supplement
Left carotid endarterectomy with bovine pericardial patch angioplasty and intraoperative EEG and SSEP monitoring.
CODE STATUS: DNR
Anticipated Discharge: Today
Subjective/Interval History
-
Date of Service: April 29, 2024
AFVSS. Patient states he feels quite good and would like to go home.
Objective Data
-
Labs:
Laboratory Results
04/29/24 04/29/24
04:56 04:57
WBC 8.0
Hgb 10.3 L
Hct 30.3 L
Plt Count 228
Sodium 137
Potassium 4.2
Chloride 102
Carbon Dioxide 26
BUN 57 H
Creatinine 4.3 H*
Glucose 105 H
Calcium 9.7
Vital Signs:
Vital Signs
Temp Pulse Resp BP Pulse Ox
98.0 F 86 18 138/81 98
04/28/24 23:24 04/28/24 23:24 04/28/24 23:24 04/28/24 23:24 04/28/24 23:24
I&O
04/28/24 04/29/24 04/30/24
06:59 06:59 07:59
Intake Total 900 / 900 1400 / 1400
Output Total 1300 / 1300 1075 / 1075
Balance -400 / -400 325 / 325
Review of Systems
-
All other systems: Reviewed and negative (except stated)
Physical Exam
-
General: Well Developed, Well Nourished and Comfortable
HEENT: Normocephalic and Atraumatic
Respiratory: Clear to Auscultation
Cardiac: Regular Rhythm and S1/S2
GI: Soft, Nontender and Nondistended
Musculoskeletal: No Clubbing and No Edema
Skin: Warm and Dry
Neuro: Awake, Alert, Oriented and Nonfocal/Grossly Intact
Psych: Calm and Intact Judgement/Insight
Data Reviewed
-
Labs: Labs Reviewed by me, Discussed with Physician and Discussed with Patient
[2024-04-29 07:20] VITALS: BP 148/77
--- NOTE | 2024-04-29 08:04 | PTCARENOTE ---
Patient refused to take am medications, because he was eating breakfast and did not want to be interrupted. RN returned to give meds later and patient refused because he wanted to get washed first. RN returned later at 0950 to give meds and patient
states, 'I don't know why you are giving me medications I am supposed to be leaving today.' Patient states, 'The doctors don't know what they are doing. No one communicates with each other and you don't know what is going on.' RN attempted to
explain the patient's plan of care. Patient had been refusing heparin injection, RN clarified if he wanted Patient started yelling and pointing finger. Patient told RN to shut up and just give him is medications. Patient states, 'I don't want to
hear you talking.' Just do your job and get out.' RN asked patient to stop pointing his finger and stop yelling. Patient states, Shut up, you piece of shit. What are you going to do do call he die maintenance you piece of shit.'
[2024-04-29] MEDS: FLOMAX 0.4 MG PO (09:55)
[2024-04-29] MEDS: VITAMIN B-12 500 MCG PO (09:55)
[2024-04-29] MEDS: VITAMIN B1 100 MG PO (09:55)
[2024-04-29] MEDS: TYLENOL 650 MG PO (09:55)
[2024-04-29] MEDS: LIPITOR 10 MG PO (09:55)
[2024-04-29] MEDS: NORVASC 5 MG PO (09:55)
[2024-04-29] MEDS: FOLVITE 1 MG PO (09:55)
[2024-04-29] MEDS: VITAMIN D3 (cholecalciferol) 25 MCG PO (09:55)
[2024-04-29] MEDS: HEPARIN 5000 UNITS SC (09:55)
[2024-04-29] MEDS: ASPIR LOW (ENTERIC COATED) 81 MG PO (09:55)
[2024-04-29] MEDS: HEPARIN SC (09:56)
--- NOTE | 2024-04-29 10:30 | PTCARENOTE ---
Security called to escort nurse into patient's room to administer medications. Patient was calm and polite with airline security representative present as soon as airline security representative left, patient was rude and threatening to leave. RN did not engage and walked out of
room.
--- NOTE | 2024-04-29 12:51 | PTCARENOTE ---
Patient ambulated out to the desk and was yelling at equal opportunity counselor, because she wants to leave and has not seen a doctor. Patient reminded he saw resident this am and will see boiling tub operator today. Patient states, 'Am I just supposed to sit here until I
get better.'
--- NOTE | 2024-04-29 13:52 | W.PN.NEPH.PH ---
Today's Communication / Plan
-
see plan
Assessment/Plan
-
Patient presents with abdominal pain and dry heaving hyperkalemia.
Impression
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
Hyperkalemia.
Acute metabolic acidosis.
Abdominal pain.
Leukocytosis.
Left hydronephrosis
Hypertension
Daily ETOH intake
Plan.
Most recent creatinine from last discharge was 2.6 November 23, 2023./Admitting creatinine 3.1,
DARON worsening Creatinine now at 4.3 ,non oliguric
Lasix scan reviewed no evidence of right-sided obstructive uropathy
Catheter insertion failed , no plan of gu interventions
No acute need for dialysis, no biopsy indicated
he will likely need INFORMATICS SPECIALIST soon however he dose not want to stay at the hospital
he is willing to take risk of complications of renal failure and its lethal effects
reviewed warning symp ,must follow low k diet
he is adamant to get d/c today
avoid nephrotoxins,cont hold ARB
if d/c BMP on Wednesday
f/u with Dr Brannon in preparation of [facility]
d/w nursing
-
-
Date of Service: April 29, 2024
CC / HPI / ROS
-
Chief Complaint:
Acute kidney injury
History of Present Illness:
Creatinine remains elevated to 4.3
Hemodynamically stable
Metabolic acidosis corrected
k normal
Review of Systems:
Nonoliguric
No chest pain or shortness of breath
eating and drinking well
no abdominal pain
Labs
-
Labs:
WBC 8.0 10^3/uL (4.8-10.8) 04/29/24 04:57
RBC 3.02 10^6/uL (4.70-6.10) L 04/29/24 04:57
Hgb 10.3 g/dL (13.0-18.0) L 04/29/24 04:57
Hct 30.3 % (39.0-52.0) L 04/29/24 04:57
Plt Count 228 10^3/uL (130-400) 04/29/24 04:57
Sodium 137 mmol/L (135-145) 04/29/24 04:56
Potassium 4.2 mmol/L (3.5-5.1) 04/29/24 04:56
Chloride 102 mmol/L (98-107) 04/29/24 04:56
Carbon Dioxide 26 mmol/L (22-30) 04/29/24 04:56
BUN 57 mg/dl (9-20) H 04/29/24 04:56
Creatinine 4.3 mg/dL (0.7-1.3) H* 04/29/24 04:56
eGFR 13.30 04/29/24 04:56
Glucose 105 mg/dl (70-99) H 04/29/24 04:56
Calcium 9.7 mg/dl (8.4-10.2) 04/29/24 04:56
Phosphorus Cancelled 04/25/24 17:50
Albumin 4.1 g/dl (3.5-5.0) 04/26/24 05:29
Physical Exam
-
Vital Signs:
Vital Signs
Temp Pulse Resp BP Pulse Ox
98.3 F 88 18 148/77 98
04/29/24 07:20 04/29/24 07:20 04/29/24 07:20 04/29/24 07:20 04/29/24 07:20
Cardiovascular:: Regular rate and rhythm
Respiratory:: Bilateral: CTA
Lung Excursion:: Normal
Abdomen:: Nontender and Soft
Extremity Edema:: None: Bilateral:
[place] Catheter: No
[2024-04-29 15:05] VITALS: BP 151/72
--- NOTE | 2024-04-29 16:09 | W.DCSUMMARY ---
Addendum entered and electronically signed by Mario Claudio MD 05/01/24 08:41:
Read, reviewed, and agree. See same day progress note for additional details. Time spent coordinating care, DC planning, review of DC plan of care with resident, transition of care, review of records in EMR, med rec, consults, notes, d/w
consultants, nursing, family,
Original Note:
Discharge Summary
Discharge Data
Date of Admission: 04/25/24
Date of Discharge: 04/29/24
-
Pending Results: No
Hospital Course
Discharging Physician : Mario Claudio MD ; Dexter Pagan MD
Disposition : Home
Primary care physician : Diego Crow
Principal Discharge diagnosis : DARON on CKD4 with AG met acidosis and hyperkalemia
Chronic Discharge diagnosis : Hypertension, High cholesterol, alcohol use disorder, bilateral carotid disease s/p L CEA, history of cervical injury with effusion, former smoker, R BBB, ankylosing spondylitis, vitamin B12 deficiency
Hospital Course : 79-year-old male presented to the ER with complaints of abdominal cramping, nausea and lightheadedness.
Patient also experienced dry heaving. He denied any fevers however does c/o some chills. In the ER he was found to have mildly elevated WBC 11.3, hb 10.8. Potassium 5.5 Cr 3.1 and bicarb 14. Elevated blood pressure 182/93 and heart rate 105. He
was admitted and nephrology was consulted. He received 1 L normal saline in the ER. After admission he was started on renal diet and IV fluid with sodium bicarb. Urinalysis did not show any evidence of infection. CT abdominal pelvis obtain
results below
Given his history of acute WD and DTs in 2021 he was placed on msas protocol.
His losartan was placed on hold due to DARON and it maintained on hold given upon discharge as his serum creatinine continued to rise.
[place] was recommended by nephrology however the attempt was successful. After discussion with urology there was a consideration of doing cystoscopy if any further imaging study including Lasix renal scan show any obstruction. The study did not
show any obstruction so urology did not recommend any urological intervention.
His BMP was monitored on daily basis which showed continuously rising serum creatinine. Nephrology believes that it is probably the increase in creatinine his most likely due to progression of underlying FSGS and he may require HD initiation.
Patient remained adamant on going home as he feels fine.
Dr. Claudio discussed the patient with his over the phone. She is aware about complications of renal failure symptoms discussed with her. She also feels that the patient should be home now and not to the hospital as he would do better at home
and can get blood work.
Patient was advised also regarding the symptoms and signs of renal failure. He expresses understanding. He is also aware that he might need dialysis soon.
He is also aware not to drink alcohol
He states that his ankylosing spondylitis pain is really bad and he has to sleep in his own bed.
He was advised to complete BMP on Wednesday prescription was provided. He was also recommended to follow-up with PCP and nephrology outpatient in preparation for [employer].
Important imaging findings : CT abdomen pelvis in the ER:
1. There is inflammation surrounding the left kidney and hydronephrosis but no cause of obstruction
2. There is a nonobstructing stone on the right
3. There is diverticulosis but no evidence of diverticulitis
4. There are prominent vascular calcifications
Renal Scan Single W/lasix
Slightly asymmetric renal function, right greater than left, as detailed above.
No findings to suggest right-sided obstructive uropathy.
Flattened left renogram curve particularly following Lasix administration. Unfortunately, evaluation for left-sided obstructive uropathy markedly limited.
EKG:
SINUS RHYTHM WITH 1ST DEGREE A-V BLOCK
INCOMPLETE RIGHT BUNDLE BRANCH BLOCK
MINIMAL VOLTAGE CRITERIA FOR LVH, MAY BE NORMAL VARIANT ( R in aVL )
NONSPECIFIC ST ABNORMALITY
ABNORMAL ECG
Discharge Plan
-
Patient Disposition: Home (Routine Discharge)
Discharge Diagnosis/Procedures: DARON on CKD4 with AG met acidosis and hyperkalemia
Hypertension
High cholesterol
Condition: Good
Diet: Other diet
Additional Diets: 2 g potassium 2 g sodium diet
Activity: As tolerated
Driving Restrictions: Not until seen by your Dr
Bathing Restrictions: OK to Shower
Blood Work: BMP on 05/01/2024
Other Services: VN
Activity Restrictions/Additional Instructions:
It is very important that you get blood work on Wednesday. Avoid any pain medicines [id number] except for Tylenol. Stop losartan. It is quite possible that your kidney function will be going down which can create a lot of symptoms including
confusion. Do not drink alcohol
Referrals:
Diego Crow, [Family Provider] - in less than 1 week
Lisa Etienne MD [Active] - in less than 1 week
Additional Discharge Medication Instructions: [facility] on Wednesday05/01/24
f/u with Dr Etienne outpatient in preparation of [employer]
Continue to hold losartan per nephrology recommendations
Take folic acid 1 mg tablet by mouth daily
Take vitamin B1 100 mg tablet by mouth twice daily
Prescriptions:
New
folic acid 1 mg Tablet
1 mg PO DAILY Qty: 30 0RF
thiamine mononitrate (vit B1) 100 mg Tablet
100 mg PO BID Qty: 60 0RF
Continued
cyanocobalamin (vitamin B-12) 1,000 mcg tablet
500 mcg PO DAILY
amlodipine 5 mg tablet
5 mg PO DAILY
cholecalciferol (vitamin D3) [Vitamin D3] 25 mcg (1,000 unit) Capsule
25 mcg PO DAILY
aspirin 81 mg tablet,delayed release (DR/EC)
81 mg PO DAILY Qty: 90 0RF
atorvastatin [Lipitor] 10 mg Tablet
10 mg PO DAILY
tamsulosin [Flomax] 0.4 mg Capsule
0.4 mg PO DAILY
Discontinued
losartan 50 mg Tablet
50 mg PO BID
Discharge Orders:
Discharge Patient (As Directed); Ordered 04/29/24
Ordered By: Mario Claudio
Discharge Date and Time
Print Language: CANADIAN
== END 2024-04-29 16:15 | disposition home or self-care (01) | DRG 683 ==
LOC: 4 EAST ACU 15:30
PROVIDERS: ADMITTING PHYSICIAN Internal Medicine; ATTENDING PHYSICIAN Hospitalist; CONSULT PHYSICIAN Specialist; EMERGENCY PHYSICIAN Emergency Medicine; FAMILY PHYSICIAN Student in an Organized Health Care Education/Training Program; OTHER PHYSICIAN Internal Medicine Nephrology
DX: N17.9 Acute kidney failure, unspecified (principal); E87.21 Acute metabolic acidosis; I12.9 Hypertensive chronic kidney disease with stage 1 through stage 4 chronic kidney disease, or unspecified chronic kidney disease; N18.4 Chronic kidney disease, stage 4 (severe); E87.5 Hyperkalemia; E78.00 Pure hypercholesterolemia, unspecified; E53.8 Deficiency of other specified B group vitamins; M45.9 Ankylosing spondylitis of unspecified sites in spine; I45.10 Unspecified right bundle-branch block; N40.0 Benign prostatic hyperplasia without lower urinary tract symptoms; F10.10 Alcohol abuse, uncomplicated; Z66 Do not resuscitate; K57.90 Diverticulosis of intestine, part unspecified, without perforation or abscess without bleeding; Z87.891 Personal history of nicotine dependence; N13.2 Hydronephrosis with renal and ureteral calculous obstruction; D72.829 Elevated white blood cell count, unspecified; K21.9 Gastro-esophageal reflux disease without esophagitis; N52.9 Male erectile dysfunction, unspecified; Z79.82 Long term (current) use of aspirin; Z79.899 Other long term (current) drug therapy; Z98.1 Arthrodesis status
CPT/HCPCS: 74176; 78708; 80048; 80053; 81003; 81015; 82570; 83690; 83735; 84100; 84300; 85025; 85027; 93005; 96361; 96374; 99285; A9539

== ENCOUNTER → 2024-07-13 09:32 | Outpatient (REF) | payer MEDICARE, SELFPAY | LOC: DHVS 09:32 | PROVIDERS: ATTENDING PHYSICIAN Surgery Vascular Surgery; FAMILY PHYSICIAN Student in an Organized Health Care Education/Training Program | DX: I65.23 Occlusion and stenosis of bilateral carotid arteries (principal) | CPT/HCPCS: 93880 ==

== ENCOUNTER → 2024-09-04 08:17 | Outpatient (REF) | payer MEDICARE, SELFPAY | LOC: RCS 08:17 | PROVIDERS: ATTENDING PHYSICIAN Physician Assistant; FAMILY PHYSICIAN Student in an Organized Health Care Education/Training Program | DX: R06.09 Other forms of dyspnea (principal); I45.10 Unspecified right bundle-branch block; F10.90 Alcohol use, unspecified, uncomplicated | CPT/HCPCS: 93306 ==

== ENCOUNTER → 2025-01-26 08:17 | Outpatient (REF) | payer MEDICARE, SELFPAY | LOC: RAD 08:17 | PROVIDERS: ATTENDING PHYSICIAN Surgery Vascular Surgery; FAMILY PHYSICIAN Student in an Organized Health Care Education/Training Program | DX: I65.23 Occlusion and stenosis of bilateral carotid arteries (principal) | CPT/HCPCS: 93880 ==